=== PATIENT | female | born 1970 | race Caucasian/White ===

== ENCOUNTER 2020-06-14 14:34 | Outpatient (REF) | payer OTHER, SELFPAY ==
--- NOTE | ~2020-06-14 | XR_ITS ---
EXAMINATION: XR SHOULDER, RIGHT CLINICAL INFORMATION: Pain in right shoulder COMPARISON: None TECHNIQUE: AP external rotation, Grashey, scapular Y, and axillary views of the right shoulder. FINDINGS: No fracture or dislocation. The glenohumeral joint is well aligned. The joint space is maintained. The acromioclavicular joint is intact. There is a soft tissue calcification measuring 0.8 cm adjacent to the humeral greater tuberosity. The visualized lung is clear. The visualized ribs are intact. XR/XR shoulder RT min 2V IMPRESSION: Soft tissue calcification adjacent to the humeral greater tuberosity suggestive of calcific tendinosis of the rotator cuff.
== END 2020-06-14 14:35 | disposition home or self-care (01) ==
LOC: HO.XRAY 14:34
PROVIDERS: PCP Internal Medicine; Visit Provider Internal Medicine
DX: M25.511 Pain in right shoulder (principal)
CPT/HCPCS: 73030

== ENCOUNTER 2020-08-17 09:24 | Outpatient (REF) | payer OTHER, SELFPAY ==
--- NOTE | ~2020-08-17 | MM_ITS ---
EXAMINATION: MM SCREENING DIGITAL BREAST TOMOSYNTHESIS, BILATERAL CLINICAL INFORMATION: Screening. Asymptomatic. The lifetime risk of breast cancer based on the Tyrer-Cuzick Model is 9%. COMPARISON: Mammography: 06/16/2016, 01/15/2015 TECHNIQUE: Digital breast tomosynthesis is performed in both the craniocaudal and mediolateral oblique views along with computer-aided detection (CAD). Synthesized 2D images are generated from the tomosynthesis. Additional bilateral MLO views are provided. FINDINGS: The breasts are heterogeneously dense, which may obscure small masses (ACR BI-RADS breast composition Category c). There is fibronodular parenchymal pattern similar to prior exams. There is no developing density or interval significant mass or architectural abnormality. No abnormal calcifications. The skin contours are smooth. No significant changes from prior exam. MM/MM tomosynthesis screening BI IMPRESSION: No mammographic evidence of malignancy. ASSESSMENT: BI-RADS 2: Benign RECOMMENDATION: Routine annual mammography screening. This patient's information was entered into a reminder system with a target due date for their next mammogram.
[2020-08-17 09:57] LABS: MANUAL DIFF FLAG NO
[2020-08-17 10:03] LABS: Basophils Absolute Auto 0.1 X10*3/uL (0.0-0.2); Basophils Percent Auto 0.7 % (0-2); Eosinophils Absolute Auto 0.2 X10*3/uL (0.0-0.4); Eosinophils Percent Auto 2.7 % (0-4); Hemoglobin 12.6 g/dl (12.0-16.0); Imm Gran Abs Auto 0.05 X10*3/uL (0.00-0.03); Imm Gran Pct Auto 0.6 % (0.0-0.4); Lymphocytes Absolute Auto 2.2 X10*3/uL (1.2-4.9); Lymphocytes Percent Auto 26.5 % (20-40); Mean Corpuscular HGB Conc 32.3 g/dl (31.0-35.0); Mean Corpuscular Hemoglobin 28.3 pg (27.0-33.0); Mean Corpuscular Volume 87.6 fL (80-98); Mean Platelet Volume 11.2 fL (9.4-12.3); Monocytes Absolute Auto 0.8 X10*3/uL (0.1-1.2); Monocytes Percent Auto 9.7 % (2-11); Neutrophils Absolute Auto 4.9 X10*3/uL (2.0-8.3); Neutrophils Percent Auto 59.8 % (45-73); Platelet Count 199 X10*3/uL (160-400); Red Blood Count 4.45 X10*6/uL (4.20-5.50); Red Cell Distribution Width 19.8 % (11.0-16.0); White Blood Count 8.2 X10*3/uL (4.8-10.8)
[2020-08-17 10:26] LABS: Alanine Aminotransferase 58 U/L (0-31); Albumin Level 4.3 g/dL (3.5-5.0); Alkaline Phosphatase 97 U/L (39-117); Anion Gap 12 (12-20); Aspartate Amino Transferase 41 U/L (5-31); Bilirubin Total 0.6 mg/dL (0.0-1.0); Blood Urea Nitrogen 13 mg/dL (9-16); Calcium 9.3 mg/dL (8.4-10.2); Carbon Dioxide 24 mmol/L (22-29); Chloride 108 mmol/L (96-108); Cholesterol 183 mg/dL; Estimated Glomerular Filt Rate > 60; Glucose Fasting 99 mg/dL (60-99); HDL Cholesterol 49 mg/dL; Iron 79 mcg/dL (30-160); LDL Cholesterol Calculated 116 mg/dl; Percent Iron Saturation 26 % (15-50); Potassium 4.2 mmol/L (3.3-5.1); Sodium 140 mmol/L (135-145); Total Iron Binding Capacity 301 mcg/dL (228-428); Total Protein 6.8 g/dL (6.5-8.0); Triglycerides 90 mg/dL; Unsaturated Iron Binding 222 ug/dL
[2020-08-17 10:50] LABS: Free T4 (Free Thyroxine) 1.02 ng/dL (0.71-1.85); Thyroid Stimulating Hormone 2.29 uIU/mL (0.32-4.0)
== END 2020-08-17 09:25 | disposition home or self-care (01) ==
LOC: HO.MAMMO 09:24
PROVIDERS: PCP Internal Medicine; Visit Provider Internal Medicine
DX: Z12.31 Encounter for screening mammogram for malignant neoplasm of breast (principal); E66.01 Morbid (severe) obesity due to excess calories; E03.9 Hypothyroidism, unspecified; D50.9 Iron deficiency anemia, unspecified; D64.9 Anemia, unspecified; E78.5 Hyperlipidemia, unspecified
CPT/HCPCS: 36415; 77063; 77067; 80053; 80061; 83540; 84439; 84443; 85025

== ENCOUNTER 2021-02-09 08:55 | Outpatient (REF) | payer OTHER, SELFPAY ==
--- NOTE | ~2021-02-09 | XR_ITS ---
EXAMINATION: XR HAND, RIGHT CLINICAL INFORMATION: Pain COMPARISON: None TECHNIQUE: PA, lateral, and oblique views of the right hand. FINDINGS: Visualized portion of the distal radius and ulna demonstrate no fracture. Carpal rows are maintained. No carpal, metacarpal or phalangeal fracture. No focal soft tissue swelling. No radiopaque foreign body. XR/XR hand RT 2V IMPRESSION: Unremarkable radiographs of the right hand.
[2021-02-09 09:17] LABS: MANUAL DIFF FLAG NO
[2021-02-09 10:14] LABS: Basophils Absolute Auto 0.1 X10*3/uL (0.0-0.2); Basophils Percent Auto 1.3 % (0-2); Eosinophils Absolute Auto 0.2 X10*3/uL (0.0-0.4); Eosinophils Percent Auto 2.9 % (0-4); Hematocrit 37.4 % (37.0-47.0); Hemoglobin 12.2 g/dl (12.0-16.0); Imm Gran Abs Auto 0.03 X10*3/uL (0.00-0.03); Imm Gran Pct Auto 0.4 % (0.0-0.4); Lymphocytes Absolute Auto 2.7 X10*3/uL (1.2-4.9); Lymphocytes Percent Auto 34.3 % (20-40); Mean Corpuscular HGB Conc 32.6 g/dl (31.0-35.0); Mean Corpuscular Hemoglobin 28.7 pg (27.0-33.0); Mean Platelet Volume 11.3 fL (9.4-12.3); Monocytes Absolute Auto 0.7 X10*3/uL (0.1-1.2); Monocytes Percent Auto 8.3 % (2-11); Neutrophils Absolute Auto 4.2 x10*3/uL (2.0-8.3); Neutrophils Percent Auto 52.8 % (45-73); Platelet Count 275 X10*3/uL (160-400); Red Blood Count 4.25 X10*6/uL (4.20-5.50)
[2021-02-09 11:09] LABS: Thyroid Stimulating Hormone 3.88 uIU/mL (0.32-4.0)
== END 2021-02-09 08:56 | disposition home or self-care (01) ==
LOC: HO.LAB 08:55
PROVIDERS: PCP Internal Medicine; Visit Provider Internal Medicine
DX: E03.9 Hypothyroidism, unspecified (principal); D64.9 Anemia, unspecified; M79.644 Pain in right finger(s)
CPT/HCPCS: 36415; 73120; 84443; 85025

== ENCOUNTER → 2021-04-06 09:40 | Outpatient (BNVA) | payer OTHER, SELFPAY | PROVIDERS: PCP Internal Medicine; Visit Provider Orthopaedic Surgery | DX: M65.311 Trigger thumb, right thumb (principal) | CPT/HCPCS: 99202 ==

== ENCOUNTER 2021-04-19 07:44 | Outpatient (REF) | payer OTHER, SELFPAY ==
[2021-04-19 08:09] LABS: MANUAL DIFF FLAG NO
[2021-04-19 08:34] LABS: Basophils Absolute Auto 0.1 X10*3/uL (0.0-0.2); Basophils Percent Auto 1.2 % (0-2); Eosinophils Absolute Auto 0.2 X10*3/uL (0.0-0.4); Eosinophils Percent Auto 2.5 % (0-4); Hematocrit 36.4 % (37.0-47.0); Hemoglobin 11.5 g/dl (12.0-16.0); Imm Gran Abs Auto 0.03 X10*3/uL (0.00-0.03); Imm Gran Pct Auto 0.4 % (0.0-0.4); Lymphocytes Absolute Auto 2.5 X10*3/uL (1.2-4.9); Lymphocytes Percent Auto 32.4 % (20-40); Mean Corpuscular HGB Conc 31.6 g/dl (31.0-35.0); Mean Corpuscular Hemoglobin 27.1 pg (27.0-33.0); Mean Corpuscular Volume 85.8 fL (80.0-98.0); Mean Platelet Volume 11.2 fL (9.4-12.3); Monocytes Absolute Auto 0.7 X10*3/uL (0.1-1.2); Monocytes Percent Auto 8.9 % (2-11); Neutrophils Absolute Auto 4.2 x10*3/uL (2.0-8.3); Neutrophils Percent Auto 54.6 % (45-73); Platelet Count 284 X10*3/uL (160-400); Red Blood Count 4.24 X10*6/uL (4.20-5.50); Red Cell Distribution Width 13.4 % (11.0-16.0); White Blood Count 7.8 X10*3/uL (4.8-10.8)
[2021-04-19 08:55] LABS: Alanine Aminotransferase 16 U/L (0-31); Albumin Level 4.2 g/dL (3.5-5.0); Alkaline Phosphatase 78 U/L (39-117); Anion Gap 12 (12-20); Aspartate Amino Transferase 17 U/L (5-31); Bilirubin Total 0.4 mg/dL (0.0-1.0); Blood Urea Nitrogen 18 mg/dL (9-16); Calcium 9.4 mg/dL (8.4-10.2); Carbon Dioxide 27 mmol/L (22-29); Chloride 104 mmol/L (96-108); Cholesterol 185 mg/dL; Estimated Glomerular Filt Rate > 60; Glucose Fasting 100 mg/dL (60-99); HDL Cholesterol 48 mg/dL; Iron 41 mcg/dL (30-160); LDL Cholesterol Calculated 120 mg/dl; Percent Iron Saturation 11 % (15-50); Potassium 4.4 mmol/L (3.3-5.1); Sodium 139 mmol/L (135-145); Total Iron Binding Capacity 380 mcg/dL (228-428); Total Protein 6.8 g/dL (6.5-8.0); Triglycerides 88 mg/dL; Unsaturated Iron Binding 339 ug/dL
[2021-04-19 09:17] LABS: Thyroid Stimulating Hormone 2.52 uIU/mL (0.32-4.0)
== END 2021-04-19 07:45 | disposition home or self-care (01) ==
LOC: HO.LAB 07:44
PROVIDERS: PCP Internal Medicine; Visit Provider Internal Medicine
DX: E03.9 Hypothyroidism, unspecified (principal); E78.5 Hyperlipidemia, unspecified; R03.0 Elevated blood-pressure reading, without diagnosis of hypertension; D50.9 Iron deficiency anemia, unspecified
CPT/HCPCS: 36415; 80053; 80061; 83540; 84443; 85025

== ENCOUNTER 2021-04-25 11:27 | Day surgery (SDC) | payer OTHER, SELFPAY ==
[2021-04-25 12:20] VITALS: BMI 38.2
--- NOTE | 2021-04-25 14:37 | MHC.SHP ---
Pre-Procedural Eval Section A Date of Service: 04/25/21 The patient is an INPATIENT: No Changes since office visit: No Cold of Flu in the past 2 weeks, No New Medical Problems, No Changes in Medication and No Patient answered all questions The History & Physical has been completed within 30 days and I have reviewed it.: Yes Section B Chief Complaint: thumb trigger release Allergies: Allergies Allergy/AdvReac Type Severity Reaction Status Date / Time amoxicillin Allergy Intermediate hives Verified 04/06/21 09:54 Plan I have reviewed the history and physical and performed a pertinent physical examination on my patient. No changes have occurred unless specified.
--- NOTE | 2021-04-25 14:38 | P.OP_ITS ---
Operative Note Operative Note Date of Service: 04/25/21 Narrative: Operative Note Preop diagnosis: 1. right thumb Trigger finger Postop diagnosis: 1. right thumb Trigger finger Procedure: 1. right thumb A1 juan release Surgeon: Annamarie Ramirez MD Anesthesia: local block using 1% lidocaine with epinephrine Findings: No locking or catching after A1 juan release EBL: Less than 5 mL Tourniquet time: None Specimens: None Complications: None Disposition: Brought to recovery room in stable condition Plan: Follow-up for 10-14 days for wound check and suture removal Indications: The patient is 51 years old, with a right thumb trigger finger that has been unresponsive to nonoperative management. The risks and benefits of operative treatment including but not limited to risk of damage to blood vessels, nerves, tendons, infection, persistent pain, persistent symptoms, recurrence or possible need for additional surgery were discussed with the patient and the patient wishes to proceed with surgery. Procedure: Once consent was obtained a local block was performed in the preop area using a combination of 1% lidocaine with epinephrine. The patient was then brought back to the operating suite and placed on the operative table in supine position. A tourniquet was applied to the proximal aspect of the right upper extremity and the limb was prepped and draped in a standard surgical fashion. Once assured that we had a good block, a 1.5 cm oblique incision was made centered over the A1 juan of the right thumb . The incision was made through the skin to the subcutaneous tissues using a #15 blade. Careful dissection was made down to the level of the A1 juan using tenotomy scissors, with care being taken to protect the nearby neurovascular structures. A longitudinal incision was made in the A1 juan 1st using a #15 blade, then using tenotomy scissors under direct visualization. The A1 juan was noted to be thickened. Following our A1 juan release, we no longer saw any locking or catching of the digit wit h flexion and extension. Once satisfied with our A1 juan release the wound was copiously irrigated with normal saline and hemostasis was obtained with a brief period of local pressure. The skin edges were reapproximated with some 5.0 nylon suture material and a sterile dressing was applied. The patient appears to have tolerated the procedure well and with no complications. All digits were well vascularized at the conclusion of the case.
[2021-04-25 14:59] VITALS: BP 132/70; PULSE 86; RESP 16; TEMP 36.1; O2SAT 98
== END 2021-04-25 15:08 | disposition home or self-care (01) ==
PROVIDERS: PCP Internal Medicine; Visit Provider Orthopaedic Surgery
PROC: (CPT 26055; principal; 2021-04-25 13:10)
DX: M65.311 Trigger thumb, right thumb (principal); M79.644 Pain in right finger(s); R03.0 Elevated blood-pressure reading, without diagnosis of hypertension; F31.9 Bipolar disorder, unspecified; F41.1 Generalized anxiety disorder; Z88.1 Allergy status to other antibiotic agents; E03.9 Hypothyroidism, unspecified; D50.9 Iron deficiency anemia, unspecified; E66.01 Morbid (severe) obesity due to excess calories; Z68.38 Body mass index [BMI] 38.0-38.9, adult; Z79.899 Other long term (current) drug therapy; Z87.891 Personal history of nicotine dependence
CPT/HCPCS: 26055

== ENCOUNTER → 2021-05-10 08:32 | Outpatient (BNVA) | payer OTHER, SELFPAY | PROVIDERS: PCP Internal Medicine; Visit Provider Orthopaedic Surgery | DX: Z47.89 Encounter for other orthopedic aftercare (principal); Z87.39 Personal history of other diseases of the musculoskeletal system and connective tissue | CPT/HCPCS: 99212 ==

== ENCOUNTER 2021-07-29 15:51 | Emergency (ER) | payer OTHER, SELFPAY ==
[2021-07-29 16:00] VITALS: BP 180/100; PULSE 100; O2SAT 95
[2021-07-29 16:12] VITALS: BP 165/72; PULSE 85; RESP 16; TEMP 36.3; O2SAT 97; BMI 37.9
[2021-07-29 20:20] VITALS: BP 145/77; PULSE 70; RESP 18; O2SAT 98
--- NOTE | 2021-07-29 20:23 | ED.GENADULT ---
HPI - General Adult General Chief complaint: General Medical Stated complaint: hypertension/headache Time Seen by Provider: 07/29/21 20:23 Source: patient Mode of arrival: ambulatory Limitations: no limitations History of Present Illness HPI narrative: Patient history of hypertension, anxiety supposed to be on lisinopril which is not taking for last 4 days . Patient does have anxiety and stress lately started having headache at the top of the head around 14:00 came home no nausea no vomiting took her blood pressure was elevated to 194/113 to her lisinopril 10 mg at 14:50 on arrival patient's blood pressure was 165/72. Patient describes her headache dull headache gradual onset localized to top of the head area. Recheck blood pressure was 145/77 Related Data Home Medications Medication Instructions Recorded Confirmed diphenhydramine HCl 25 mg capsule 25 mg PO TID PRN 06/14/20 06/15/21 (Benadryl) Previous Rx's Medication Instructions Recorded levothyroxine 25 mcg tablet 25 mcg PO DAILY 90 Days #90 tab 03/18/21 lisinopril 10 mg tablet 10 mg PO DAILY 90 Days #90 tab 04/15/21 hydrocortisone 1 % topical cream 1 appl TOPICAL TID PRN 30 Days 06/15/21 (Anti-Itch (hydrocortisone)) #28.4 g ferrous sulfate 325 mg (65 mg 325 mg PO DAILY 90 Days #90 tab 07/12/21 iron) tablet lorazepam 0.5 mg tablet (Ativan) 0.5 mg PO BEDTIME PRN #14 tab 07/29/21 Allergies Allergy/AdvReac Type Severity Reaction Status Date / Time amoxicillin Allergy Intermediate hives Verified 07/29/21 16:16 Review of Systems Review of Systems: Yes all other systems are reviewed and are negative PMFSH Past Medical History Medical History Bipolar 1 disorder Eczema Elevated blood pressure reading in office without diagnosis of hypertension Essential hypertension EDEN (generalized anxiety disorder) History of trigger finger Hypothyroidism Iron deficiency anemia Morbid obesity Pain of right thumb Physical exam Right shoulder pain Surgical History History of laparoscopic cholecystectomy History of tubal ligation Trigger finger of right thumb Family History Family History Father No problems noted. Mother Diabetes Hypertension Maternal Grandmother Diabetes Hypertension Stroke Maternal Aunt Diabetes Hypertension CVD (cardiovascular disease) Social History Social History Housing: Apartment Alcohol intake: never Patient Tobacco Use Status: Former Tobacco user Tobacco use type: Cigarette e-Cigarette/Vaping Use: Never Used Second Hand Smoke Exposure: No Advance Directives: No Advance Directives Information Provided: Yes service: No Current occupational status: unemployed Current occupation: rt hand Cognitive needs: No Hearing needs: No Vision needs: Yes Physical Exam ED Vital Signs: Vital Signs - 24 hr 07/29/21 16:12 07/29/21 20:20 Temperature 97.3 F Pulse Rate 85 70 Respiratory Rate 16 18 Blood Pressure 165/72 H 145/77 H Pulse Oximetry 97 98 BMI result Body Mass Index 37.9 Appearance: Alert. Oriented X3. No acute distress. Anxious Eyes: PERRLA, ENT: Pharynx normal. Oral Mucosa moist Neck: Normal inspection. Neck supple. CVS: Normal heart rate and rhythm. Pulses normal. Respiratory: No respiratory distress. Equal air entry bilateral, no wheezing/rales/rhonchi Abdomen: Soft and nontender. Bowel sounds are present, no mass palpable, no CVA tenderness Skin: Skin warm and dry. Normal skin color. Normal skin turgor. Extremities: No lower extremity edema. No calf tenderness Neuro: Oriented X 3. No motor deficit. No sensory deficit.No cerebellar signs , cranial nerves II-XII intact Medical Decision Making MDM Narrative Medical decision making narrative: Patient history of hypertension anxiety not taking her anxiety medication blood pressure was elevated at home on arrival patient's blood pressure improved. Has only mild headache at this time no neuro deficits will give Tylenol and Ativan to relax advised to continue her lisinopril and follow with PCP Discharge Plan Discharge Clinical Impression: Essential hypertension, EDEN (generalized anxiety disorder) Patient Disposition: Home, Self-Care Instructions: Chronic Hypertension (ED), Anxiety (ED) Additional Instructions: Take blood pressure medication as prescribed by your PCP Decrease salt intake Anxiety medication as prescribed Check blood pressure 2 times daily it should be less than 140/90 Prescriptions: New lorazepam [Ativan] 0.5 mg tablet 0.5 mg PO BEDTIME PRN (Reason: anxiety) Qty: 14 0RF No Action levothyroxine 25 mcg tablet 25 mcg PO DAILY 90 Days Qty: 90 1RF lisinopril 10 mg tablet 10 mg PO DAILY 90 Days Qty: 90 1RF ferrous sulfate 325 mg (65 mg iron) tablet 325 mg PO DAILY 90 Days Qty: 90 1RF hydrocortisone [Anti-Itch (HC)] 1 % cream 1 appl topical TID PRN (Reason: skin irritation) 30 Days Qty: 28.4 1RF diphenhydramine HCl [Benadryl] 25 mg capsule 25 mg PO TID PRN0RF
[2021-07-29] MEDS: Acetaminophen 325 MG TABLET 650 MG PO (21:12)
[2021-07-29 21:13] VITALS: BP 166/73; PULSE 75; RESP 22
== END 2021-07-29 21:19 | disposition home or self-care (01) ==
PROVIDERS: Emergency Provider Internal Medicine; PCP Internal Medicine
DX: F41.1 Generalized anxiety disorder (principal); I10 Essential (primary) hypertension
CPT/HCPCS: 99283

== ENCOUNTER 2021-12-12 08:31 | Outpatient (REF) | payer OTHER, SELFPAY ==
[2021-12-12 08:42] LABS: MANUAL DIFF FLAG NO
[2021-12-12 09:14] LABS: Basophils Absolute Auto 0.1 X10*3/uL (0.0-0.2); Basophils Percent Auto 0.9 % (0-2); Eosinophils Absolute Auto 0.2 X10*3/uL (0.0-0.4); Eosinophils Percent Auto 2.8 % (0-4); Hematocrit 36.1 % (37.0-47.0); Hemoglobin 11.2 g/dl (12.0-16.0); Imm Gran Abs Auto 0.02 X10*3/uL (0.00-0.03); Imm Gran Pct Auto 0.3 % (0.0-0.4); Lymphocytes Absolute Auto 2.7 X10*3/uL (1.2-4.9); Lymphocytes Percent Auto 36.2 % (20-40); Mean Corpuscular Volume 83.8 fL (80.0-98.0); Mean Platelet Volume 11.3 fL (9.4-12.3); Monocytes Absolute Auto 0.7 X10*3/uL (0.1-1.2); Monocytes Percent Auto 9.4 % (2-11); Neutrophils Absolute Auto 3.8 x10*3/uL (2.0-8.3); Neutrophils Percent Auto 50.4 % (45-73); Platelet Count 278 X10*3/uL (160-400); Red Blood Count 4.31 X10*6/uL (4.20-5.50); Red Cell Distribution Width 13.6 % (11.0-16.0); White Blood Count 7.5 X10*3/uL (4.8-10.8)
[2021-12-12 09:39] LABS: Iron 43 mcg/dL (30-160); Percent Iron Saturation 10 % (15-50); Total Iron Binding Capacity 436 mcg/dL (228-428); Unsaturated Iron Binding 393 ug/dL
[2021-12-12 10:03] LABS: Thyroid Stimulating Hormone 4.27 uIU/mL (0.32-4.0)
== END 2021-12-12 08:32 | disposition home or self-care (01) ==
LOC: HO.LAB 08:31
PROVIDERS: PCP Internal Medicine; Visit Provider Internal Medicine
DX: E03.9 Hypothyroidism, unspecified (principal); D64.9 Anemia, unspecified
CPT/HCPCS: 36415; 83540; 84443; 85025

== ENCOUNTER 2022-07-04 07:59 | Outpatient (REF) | payer OTHER, SELFPAY ==
[2022-07-04 09:13] LABS: Thyroid Stimulating Hormone 3.26 uIU/mL (0.32-4.0)
== END 2022-07-04 08:00 | disposition home or self-care (01) ==
LOC: HO.LAB 07:59
PROVIDERS: PCP Internal Medicine; Visit Provider Internal Medicine
DX: E03.9 Hypothyroidism, unspecified (principal)
CPT/HCPCS: 36415; 84443

== ENCOUNTER 2022-11-01 12:01 | Outpatient (REF) | payer OTHER, SELFPAY ==
--- NOTE | ~2022-11-01 | MM_ITS ---
EXAMINATION: MM SCREENING DIGITAL BREAST TOMOSYNTHESIS, BILATERAL CLINICAL INFORMATION: Screening. Asymptomatic. COMPARISON: Mammography: 08/17/2020, 06/16/2016, and 01/15/2015. TECHNIQUE: Digital breast tomosynthesis is performed in both the craniocaudal and mediolateral oblique views along with computer-aided detection (CAD). Synthesized 2D images are generated from the tomosynthesis. In addition, 3-D full-field digital right MLO nipple in profile views were obtained. FINDINGS: The breasts are heterogeneously dense, which may obscure small masses (ACR BI-RADS breast composition Category c). Parenchyma again is noted to have a fibronodular diffuse pattern. It is unchanged from prior examinations in both breasts. There are no suspicious masses, suspicious grouped calcifications, or areas of architectural distortion. MM/MM tomosynthesis screening BI IMPRESSION: No mammographic evidence of malignancy. ASSESSMENT: BI-RADS BI-RADS 1 - Negative RECOMMENDATION: Routine annual mammography screening. 1 year F/U This examination should not preclude the clinical evaluation of a suspicious palpable abnormality. This patient's information was entered into a reminder system with a target due date for their next mammogram.
== END 2022-11-01 12:02 | disposition home or self-care (01) ==
LOC: HO.MAMMO 12:01
PROVIDERS: PCP Internal Medicine; Visit Provider Internal Medicine
DX: Z12.31 Encounter for screening mammogram for malignant neoplasm of breast (principal)
CPT/HCPCS: 77063; 77067

== ENCOUNTER → 2022-11-01 12:15 | Outpatient (BNV) | payer OTHER, SELFPAY | PROVIDERS: PCP Internal Medicine; Visit Provider Radiology Diagnostic Radiology | DX: Z12.31 Encounter for screening mammogram for malignant neoplasm of breast (principal) | CPT/HCPCS: 77063; 77067 ==

== ENCOUNTER 2023-07-09 08:13 | Outpatient (AMB) | payer OTHER, SELFPAY ==
[2023-07-09 08:23] VITALS: BP 150/82; BMI 40.9
--- NOTE | 2023-07-09 08:23 | MHC.PC.OV ---
Vital Signs 07/09/23 08:23 07/09/23 09:02 Height 5 ft 5 in Weight 246 lb BMI 40.9 BP 150/82 H 150/80 H Blood Pressure Location Lt brachial Lt brachial Position Sitting Sitting Intake Visit Reasons: physical exam Intake Note: Patient here for a physical exam [employer] Defense Specialist Required: No Accompanied by: Self / Same As Patient Allergies amoxicillin Allergy (Intermediate, Verified 07/09/23 08:37) hives Medication List - Last Reconciled 07/09/23 by Nancy Rondon MD amlodipine 5 mg PO DAILY 90 days hydrocortisone 1% (Anti-Itch (hydrocortisone)) 1 appl topical TID PRN 30 days levothyroxine 50 mcg PO DAILY 90 days Tobacco use date assessed: 07/09/23 Dental Screening Dental Screen Date: 07/09/23 Did you have a dental visit in the last 12 months?: Yes Did you have a dental problem in the last 6 months where you did not have access to dental care?: No Was dental information given to patient?: Patient has dentist HPI HPI Comments History of Present Illness Details This is a 53-year-old female with morbid obesity and bipolar disorder that comes for her physical exam. She is morbidly obese with a BMI of 40.9 and has tried diet and exercise with no success. Will be referred to weight management. Has bipolar disorder with more anxiety and I will start her on Lamictal. Blood pressure elevated today and will be recheck by nurse in 3 weeks. I will increase amlodipine from 5 mg to 10 mg. Patient is aware that amlodipine cause leg swelling but she has not experienced that at the moment. Last mammogram was October 2022. Last Pap smear was 2015 and will be referred to OBGYN. Was not able to do the Cologuard and will prefer colonoscopy. Was referred to Gastroenterology for this matter. [facility] Medical History (Updated 07/09/23 @ 08:56 by Nancy Rondon MD) Eczema Physical exam History of trigger finger Essential hypertension EDEN (generalized anxiety disorder) Elevated blood pressure reading in office without diagnosis of hypertension Pain of right thumb Iron deficiency anemia Hypothyroidism Right shoulder pain Morbid obesity Bipolar 1 disorder Surgical History Trigger finger of right thumb History of tubal ligation History of laparoscopic cholecystectomy Family History Father No problems noted. Mother Diabetes Hypertension Maternal Grandmother Diabetes Hypertension Stroke Maternal Aunt Diabetes Hypertension CVD (cardiovascular disease) Social History Housing: Apartment Alcohol intake: never Patient Tobacco Use Status: Former Tobacco user Tobacco use type: Cigarette e-Cigarette/Vaping Use: Never Used Second Hand Smoke Exposure: No service: No Current occupational status: employed Current occupation: rt hand Current occupational exposures/hazards: No Cognitive needs: No Hearing needs: No Vision needs: Yes Questionnaire PHQ-9 Over the last 2 weeks, how often have you been bothered by any of the following problems? 1. Little interest or pleasure in doing things: not at all 2. Feeling down, depressed, or hopeless: not at all 3. Trouble falling or staying asleep, or sleeping too much: not at all 4. Feeling tired or having little energy: not at all 5. Poor appetite or overeating: not at all 6. Feeling bad about yourself - or that you are a failure or have let yourself or your family down: not at all 7. Trouble concentrating on things, such as reading the newspaper or watching television: not at all 8. Moving or speaking so slowly that other people could have noticed. Or the opposite - being so fidgety or restless that you have been moving around a lot more than usual: not at all 9. Thoughts that you would be better off or of hurting yourself in some way: not at all Total score: 0 Depression Screening Interpretation: Negative Depression Screening Done: Yes 56104 - PHQ-9 Billing: Yes Source: Developed by Drs. Colt Woo, Nina Acuña, Rico Jarquin and colleagues, with an educational codi from [employer]. Thrive Questionnaire Date Thrive assessed: 07/09/23 I am a: Patient What is your living situation today?: I have a steady place to live Within the past 12 months, did the food you bought not last and you didn't have the money to get more?: Never true Within the past 12 months, did you worry whether your food would run out before you got money to buy more?: Never true Do you have trouble paying for medicines?: No Do you have trouble getting transportation to medical appointments?: No Do you have trouble paying your heating and electricity bill?: No Do you have trouble taking care of your child, family member or friend?: No Do you have trouble with day-to-day activities such as bathing, preparing meals, shopping, managing finances, etc.?: No Are you currently unemployed and looking for a job?: No Are you interested in more education?: No Please select the resources that you would like help with: None Currently or been in a relationship where the following occur: no concerns reported THRIVE Score: 0 AUDIT C Alcohol Use Questionnaire (AUDIT-C) 1. How often do you have a drink containing alcohol?: Never Total Score: 0 Score Reviewed/Action Taken: No EDEN-7 AMB Questionnaire EDEN-7 Date EDEN - 7 assessed: 07/09/23 Feeling nervous, anxious, or on edge: 3 = Nearly every day Not being able to stop or control worryin = Several days Worrying too much about different things: 3 = Nearly every day Trouble relaxin = Nearly every day Being so restless that it is hard to sit still: 1 = Several days Becoming easily annoyed or irritable: 1 = Several days Feeling afraid as if something awful might happen: 3 = Nearly every day Total EDEN-7 score (0-4 normal; 5-9 mild; 10-14 moderate; 15-21 severe): 15 Source: Developed by Drs. Colt Woo, Nina Acuña, Rico Jarquin and colleagues, with an educational codi from [employer]. EDEN-7 Assessment Billing EDEN-7 Assessment Tool: EDEN-7 Assessment 18901 Review of Systems Const All systems reviewed & are unremarkable except as noted in HPI and below Eyes Reports no additional complaints, Denies change in vision and Denies other visual disturbances Card Denies chest pain at rest, Denies chest pain with activity, Denies edema, Denies irregular heart rhythm, Denies claudication, Denies dyspnea, Denies dyspnea on exertion, Denies orthopnea, Denies paroxysmal nocturnal dyspnea and Denies slow heart rate Resp Denies cough, Denies dyspnea and Denies dyspnea on exertion GI Denies abdominal pain, Denies change in bowel habits, Denies excessive flatus, Denies nausea and Denies vomiting Denies urinary incontinence, Denies urinary hesitancy and Denies urinary urgency Physical exam (Primary Care) Vital Signs: Last Vital Signs BP 150/82 H 07/09/23 08:23 BMI result Body Mass Index 40.9 BMI Assessment/Plan discussion: High BMI High, discussed plan: lifestyle, weight reduction, dietary and physical activity Tobacco/Smoking Status: Tobacco use Status Tobacco use date assessed 07/09/23 07/09/23 08:29 Patient Tobacco Use Status Former Tobacco user 07/09/23 08:29 Tobacco use type Cigarette 07/09/23 08:29 e-Cigarette/Vaping Use Never Used 07/09/23 08:29 PHQ-9: PHQ-9 Score PHQ-9: Total score 0 07/09/23 08:29 Depression Screening Interpretation: Negative Thrive Assessment: Date of Thrive Assessment Date Thrive assessed 07/09/23 07/09/23 08:29 Currently or been in a relationship where the following occur: no concerns reported Const Orientation/consciousness: patient oriented x3 HENNE Head: Yes normal to inspection, Yes normocephalic and Yes atraumatic Ears: external ears normal Eyes General: appearance normal, both eyes and all related structures Eyelids: Yes eyelids normal Conjunctivae: conjunctivae normal Neck Neck: Yes normal visual inspection and Yes supple Resp Effort & Inspection: normal respiratory effort Auscultation: clear to auscultation bilaterally Cardio Jugular venous distension: no JVD Rate: regular rate Rhythm: regular rhythm Heart sounds: S1 normal heart sound present and S2 normal heart sound present GI Inspection: Yes normal to inspection Palpation (GI): Soft to palpation and nontender Auscultation: normal bowel sounds Skin General skin exam: no rashes or lesions noted Neuro General: patient oriented x3 and no focal motor deficits Extrem General: Yes full ROM Psych Appearance: grossly normal Assessment and Plan Assessment & Plan (1) Physical exam: Code(s): Z00.00 - Encounter for general adult medical examination without abnormal findings Plan: Repeat in a year. (2) Morbid obesity: Code(s): E66.01 - Morbid (severe) obesity due to excess calories Plan: Referred to weight management. BMI goal is less than 30. (3) Bipolar 1 disorder: Code(s): F31.9 - Bipolar disorder, unspecified Plan: Start Lamictal. Orders: Orders Comprehensive [place]. Panel Fast Today Z00.00 - Encounter for general adult medical examination without abnormal findings Vitamin B12 and Folate Today E53.8 - Deficiency of other specified B group vitamins Complete Blood Count Auto Diff Today D64.9 - Anemia, unspecified Lipid Panel Today Z00.00 - Encounter for general adult medical examination without abnormal findings Vitamin D 25-OH Total Today E55.9 - Vitamin D deficiency, unspecified IRON PROFILE Today D64.9 - Anemia, unspecified Thyroid Stimulating Hormone Today E03.9 - Hypothyroidism, unspecified Referrals Gastroenterology Referral Z12.11 - Encounter for screening for malignant neoplasm of colon Medical Weight Management Referral E66.01 - Morbid (severe) obesity due to excess calories [employer] Referral Z12.4 - Encounter for screening for malignant neoplasm of cervix Medications: New amlodipine 10 mg PO DAILY 90 days 90 tabs 1RF I10 - Essential (primary) hypertension lamotrigine 25 mg PO DAILY 90 days 90 tabs 1RF F31.9 - Bipolar disorder, unspecified Discontinued amlodipine Discontinued Reason: No Longer Medically Relevant 5 mg PO DAILY 90 days 90 tabs 1RF I10 - Essential (primary) hypertension Coding Level of Care Code Est Pt Prev Care 40-64y(55424) Diagnoses Physical exam Z00.00 Morbid obesity E66.01 Bipolar 1 disorder F31.9 Additional Codes EDEN-7 Assessment Billing - EDEN-7 Assessment Tool: EDEN-7 Assessment 22927 ([id number]) Time Spent (min) 33
[2023-07-09 09:02] VITALS: BP 150/80
== END 2023-07-09 09:02 | disposition home or self-care (01) ==
PROVIDERS: Visit Provider Internal Medicine
DX: Z00.00 Encounter for general adult medical examination without abnormal findings (principal); E66.01 Morbid (severe) obesity due to excess calories; F31.9 Bipolar disorder, unspecified; Z68.41 Body mass index [BMI] 40.0-44.9, adult
CPT/HCPCS: 99396

== ENCOUNTER 2023-07-10 08:13 | Outpatient (REF) | payer OTHER, SELFPAY ==
[2023-07-10 08:42] LABS: MANUAL DIFF FLAG NO
[2023-07-10 09:05] LABS: Basophils Absolute Auto 0.1 X10*3/uL (0.0-0.2); Basophils Percent Auto 1.1 % (0-2); Eosinophils Absolute Auto 0.3 X10*3/uL (0.0-0.4); Eosinophils Percent Auto 3.5 % (0-4); Hematocrit 33.3 % (37.0-47.0); Hemoglobin 10.3 g/dl (12.0-16.0); Imm Gran Abs Auto 0.03 X10*3/uL (0.00-0.03); Imm Gran Pct Auto 0.4 % (0.0-0.4); Lymphocytes Absolute Auto 2.5 X10*3/uL (1.2-4.9); Lymphocytes Percent Auto 35.8 % (20-40); Mean Corpuscular HGB Conc 30.9 g/dl (31.0-35.0); Mean Corpuscular Hemoglobin 25.1 pg (27.0-33.0); Mean Corpuscular Volume 81.2 fL (80.0-98.0); Mean Platelet Volume 10.3 fL (9.4-12.3); Monocytes Absolute Auto 0.7 X10*3/uL (0.1-1.2); Monocytes Percent Auto 9.6 % (2-11); Neutrophils Absolute Auto 3.5 x10*3/uL (2.0-8.3); Neutrophils Percent Auto 49.6 % (45-73); Platelet Count 293 X10*3/uL (160-400); Red Cell Distribution Width 15.6 % (11.0-16.0); White Blood Count 7.1 X10*3/uL (4.8-10.8)
[2023-07-10 10:02] LABS: Alanine Aminotransferase 19 U/L (0-31); Alkaline Phosphatase 77 U/L (39-117); Anion Gap 14 (12-20); Aspartate Amino Transferase 19 U/L (5-31); Bilirubin Total 0.3 mg/dL (0.0-1.0); Blood Urea Nitrogen 14 mg/dL (9-16); Calcium 8.9 mg/dL (8.4-10.2); Carbon Dioxide 24 mmol/L (22-29); Chloride 105 mmol/L (96-108); Cholesterol 176 mg/dL (<200); Estimated Glomerular Filt Rate > 60; Glucose Fasting 97 mg/dL (60-99); HDL Cholesterol 52 mg/dL (>40); Iron 28 mcg/dL (30-160); LDL Cholesterol Calculated 107 mg/dL (<100); Percent Iron Saturation 8 % (15-50); Potassium 3.8 mmol/L (3.3-5.1); Sodium 139 mmol/L (135-145); Total Iron Binding Capacity 341 mcg/dL (228-428); Total Protein 7.1 g/dL (6.5-8.0); Triglycerides 89 mg/dL (<150); Unsaturated Iron Binding 313 ug/dL
[2023-07-10 10:20] LABS: Thyroid Stimulating Hormone 2.88 uIU/mL (0.32-4.0); Vitamin D 25-OH Total 20.2 ng/mL (>30)
[2023-07-10 10:26] LABS: Folate 12.7 ng/mL (> or = 4.0); Vitamin B12 425 pg/mL (200-900)
== END 2023-07-10 08:14 | disposition home or self-care (01) ==
LOC: HO.LAB 08:13
PROVIDERS: PCP Internal Medicine; Visit Provider Internal Medicine
DX: Z00.00 Encounter for general adult medical examination without abnormal findings (principal); D64.9 Anemia, unspecified; E03.9 Hypothyroidism, unspecified; E53.8 Deficiency of other specified B group vitamins; E55.9 Vitamin D deficiency, unspecified
CPT/HCPCS: 36415; 80053; 80061; 82306; 82607; 82746; 83540; 84443; 85025

== ENCOUNTER 2024-01-15 09:45 | Outpatient (AMB) | payer OTHER, MEDICAID, SELFPAY ==
--- NOTE | 2024-01-15 09:49 | MHC.PC.OV ---
Vital Signs 01/15/24 09:50 01/15/24 10:05 Height 5 ft 5 in Weight 244 lb BMI 40.6 BP 148/82 H 138/80 Blood Pressure Location Lt brachial Lt brachial Position Sitting Sitting Intake Visit Reasons: bp, anxiety and weight Intake Note: Patient here for a follow up Bp, Anxiety, Weight Advanced Seal Delivery System Required: No Accompanied by: Self / Same As Patient Allergies amoxicillin Allergy (Intermediate, Verified 01/15/24 09:56) hives Medication List - Last Reconciled 01/15/24 by Nancy Rondon MD amlodipine 10 mg PO DAILY 90 days cholecalciferol (vitamin D3) 25 mcg PO DAILY 90 days ferrous sulfate 325 mg PO DAILY 90 days hydrocortisone 1% (Anti-Itch (hydrocortisone)) 1 appl topical TID PRN 30 days levothyroxine 50 mcg PO DAILY 90 days Tobacco use date assessed: 07/09/23 Dental Screening Dental Screen Date: 07/09/23 HPI HPI Comments History of Present Illness Details This is a 53-year-old female with hypertension, hypothyroidism, bipolar disorder, morbid obesity and iron-deficiency anemia due to chronic blood loss that comes today for follow-up on her conditions. Blood pressure is normal to elevated. She does take it at home and usually is 130/80. TSH will be order. She tried lamotrigine as mood stabilizer which did not work for her. Has bipolar disorder on declines medication at the moment. She is morbidly obese with a BMI of 40.6 and will be referred to weight management for possible weight loss surgery. Has anemia due to menses and is on ferrous sulfate. Hemoglobin will be order. No chest pain or shortness on breath. [facility] Medical History (Updated 01/15/24 @ 11:38 by Nancy Rondon MD) Eczema Physical exam History of trigger finger Essential hypertension EDEN (generalized anxiety disorder) Elevated blood pressure reading in office without diagnosis of hypertension Pain of right thumb Iron deficiency anemia Hypothyroidism Right shoulder pain Morbid obesity Bipolar 1 disorder Surgical History Trigger finger of right thumb History of tubal ligation History of laparoscopic cholecystectomy Family History Father No problems noted. Mother Diabetes Hypertension Maternal Grandmother Diabetes Hypertension Stroke Maternal Aunt Diabetes Hypertension CVD (cardiovascular disease) Social History Housing: Apartment Alcohol intake: never Patient Tobacco Use Status: Former Tobacco user Tobacco use type: Cigarette e-Cigarette/Vaping Use: Never Used Second Hand Smoke Exposure: No service: No Current occupational status: employed Current occupation: rt hand Current occupational exposures/hazards: No Cognitive needs: No Hearing needs: No Vision needs: Yes Questionnaire Thrive Questionnaire Date Thrive assessed: 07/09/23 EDEN-7 AMB Questionnaire EDEN-7 Date EDEN - 7 assessed: 07/09/23 Source: Developed by Drs. Colt Woo, Nina Acuña, Rico Jarquin and colleagues, with an educational codi from [employer]. Review of Systems Const All systems reviewed & are unremarkable except as noted in HPI and below Card Denies chest pain at rest, Denies chest pain with activity, Denies edema, Denies irregular heart rhythm, Denies claudication, Denies dyspnea, Denies dyspnea on exertion, Denies orthopnea, Denies paroxysmal nocturnal dyspnea and Denies slow heart rate Resp Denies cough, Denies dyspnea and Denies dyspnea on exertion GI Denies abdominal pain, Denies change in bowel habits, Denies excessive flatus, Denies nausea and Denies vomiting Denies urinary incontinence, Denies urinary hesitancy and Denies urinary urgency Musc Denies atrophy, Denies deformity and Denies limited range of motion Skin/Breast Denies bleeding lesions, Denies changing lesions and Denies rash Physical exam (Primary Care) Vital Signs: Last Vital Signs BP 138/80 01/15/24 10:05 BMI result Body Mass Index 40.6 BMI Assessment/Plan discussion: High BMI High, discussed plan: lifestyle, weight reduction, dietary and physical activity Tobacco/Smoking Status: Tobacco use Status Tobacco use date assessed 07/09/23 01/15/24 09:50 Patient Tobacco Use Status Former Tobacco user 01/15/24 09:50 Tobacco use type Cigarette 01/15/24 09:50 e-Cigarette/Vaping Use Never Used 01/15/24 09:50 Thrive Assessment: Date of Thrive Assessment Date Thrive assessed 07/09/23 01/15/24 09:50 Resp Effort & Inspection: normal respiratory effort Auscultation: clear to auscultation bilaterally Cardio Jugular venous distension: no JVD Rate: regular rate Rhythm: regular rhythm Heart sounds: S1 normal heart sound present and S2 normal heart sound present Extrem General: Yes full ROM Coding Level of Care Code Est Pt Level 4 (53179) Complex EM visit Add On G2211 Diagnoses Essential hypertension I10 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 Blood pressure goal is equal or less than 130/80. (2) Hypothyroidism: Code(s): E03.9 - Hypothyroidism, unspecified Category: Medical Qualifiers: Hypothyroidism type: due to Lola's thyroiditis Qualified Code(s): E06.3 - Autoimmune thyroiditis Plan: Continue levothyroxine. Monitor TSH. (3) Iron deficiency anemia: Code(s): D50.9 - Iron deficiency anemia, unspecified Category: Medical Qualifiers: Iron deficiency anemia type: chronic blood loss Qualified Code(s): D50.0 - Iron deficiency anemia secondary to blood loss (chronic) Plan: Continue ferrous sulfate. Monitor hemoglobin. (4) Morbid obesity: Code(s): E66.01 - Morbid (severe) obesity due to excess calories Category: Medical Plan: Referred to weight management. BMI goal is less than 30. Continue diet and exercise. (5) Bipolar 1 disorder: Code(s): F31.9 - Bipolar disorder, unspecified Category: Medical Plan: Declines treatment. Orders: Orders MM tomosynthesis screening BI Today Z12.31 - Encounter for screening mammogram for malignant neoplasm of breast Complete Blood Count Auto Diff Today D64.9 - Anemia, unspecified Thyroid Stimulating Hormone Today E03.9 - Hypothyroidism, unspecified IRON PROFILE Today D64.9 - Anemia, unspecified Vitamin D 25-OH Total Today E55.9 - Vitamin D deficiency, unspecified Referrals Medical Weight Management Referral E66.01 - Morbid (severe) obesity due to excess calories
[2024-01-15 09:50] VITALS: BP 148/82; BMI 40.6
[2024-01-15 10:05] VITALS: BP 138/80
== END 2024-01-15 10:06 | disposition home or self-care (01) ==
LOC: HO.HMCH 09:46
PROVIDERS: PCP Internal Medicine; Visit Provider Internal Medicine
DX: I10 Essential (primary) hypertension (principal); E66.01 Morbid (severe) obesity due to excess calories; F31.9 Bipolar disorder, unspecified; Z68.41 Body mass index [BMI] 40.0-44.9, adult; E06.3 Autoimmune thyroiditis; D50.0 Iron deficiency anemia secondary to blood loss (chronic)

== ENCOUNTER 2024-01-15 09:45 | Outpatient (REF) | payer OTHER, MEDICAID, SELFPAY ==
[2024-01-15 10:42] LABS: MANUAL DIFF FLAG NO
[2024-01-15 11:03] LABS: Basophils Absolute Auto 0.1 X10*3/uL (0.0-0.2); Basophils Percent Auto 1.1 % (0-2); Eosinophils Absolute Auto 0.3 X10*3/uL (0.0-0.4); Eosinophils Percent Auto 3.5 % (0-4); Hematocrit 34.5 % (37.0-47.0); Hemoglobin 10.8 g/dl (12.0-16.0); Imm Gran Abs Auto 0.04 X10*3/uL (0.00-0.03); Imm Gran Pct Auto 0.4 % (0.0-0.4); Lymphocytes Absolute Auto 3.3 X10*3/uL (1.2-4.9); Lymphocytes Percent Auto 34.9 % (20-40); Mean Corpuscular HGB Conc 31.3 g/dl (31.0-35.0); Mean Corpuscular Hemoglobin 25.6 pg (27.0-33.0); Mean Corpuscular Volume 81.8 fL (80.0-98.0); Mean Platelet Volume 10.8 fL (9.4-12.3); Monocytes Absolute Auto 0.9 X10*3/uL (0.1-1.2); Monocytes Percent Auto 9.7 % (2-11); Neutrophils Absolute Auto 4.8 x10*3/uL (2.0-8.3); Neutrophils Percent Auto 50.4 % (45-73); Platelet Count 300 X10*3/uL (160-400); Red Blood Count 4.22 X10*6/uL (4.20-5.50); Red Cell Distribution Width 14.6 % (11.0-16.0); White Blood Count 9.4 X10*3/uL (4.8-10.8)
[2024-01-15 11:51] LABS: Iron 32 mcg/dL (30-160); Percent Iron Saturation 10 % (15-50); Total Iron Binding Capacity 328 mcg/dL (228-428); Unsaturated Iron Binding 296 ug/dL
[2024-01-15 12:00] LABS: Thyroid Stimulating Hormone 3.82 uIU/mL (0.32-4.0)
== END 2024-01-15 09:46 | disposition home or self-care (01) ==
LOC: HO.LAB 09:45
PROVIDERS: PCP Internal Medicine; Visit Provider Internal Medicine
DX: D64.9 Anemia, unspecified (principal); E03.9 Hypothyroidism, unspecified; E55.9 Vitamin D deficiency, unspecified
CPT/HCPCS: 36415; 82306; 83540; 84443; 85025

== ENCOUNTER 2024-04-24 14:01 | Outpatient (REF) | payer OTHER, SELFPAY | END 2024-04-24 14:02 | disposition home or self-care (01) | LOC: HO.MAMMO 14:01 | PROVIDERS: PCP Internal Medicine; Visit Provider Internal Medicine | DX: Z12.31 Encounter for screening mammogram for malignant neoplasm of breast (principal) | CPT/HCPCS: 77063; 77067 ==

== ENCOUNTER → 2024-04-24 14:15 | Outpatient (BNV) | payer OTHER, SELFPAY | PROVIDERS: PCP Internal Medicine; Visit Provider Internal Medicine | DX: Z12.31 Encounter for screening mammogram for malignant neoplasm of breast (principal) | CPT/HCPCS: 77063; 77067 ==

== ENCOUNTER 2024-05-20 23:16 | Emergency (ER) | payer OTHER, SELFPAY ==
[2024-05-20 23:27] VITALS: BP 156/78; PULSE 93; RESP 18; TEMP 37; O2SAT 98; BMI 40.6
[2024-05-21 02:00] VITALS: BP 166/70; PULSE 76; RESP 18; TEMP 36.8; O2SAT 98
[2024-05-21 02:39] LABS: MANUAL DIFF FLAG NO
[2024-05-21 02:40] LABS: Basophils Absolute Auto 0.1 X10*3/uL (0.0-0.2); Basophils Percent Auto 1.1 % (0-2); Eosinophils Absolute Auto 0.3 X10*3/uL (0.0-0.4); Eosinophils Percent Auto 3.6 % (0-4); Hemoglobin 10.5 g/dl (12.0-16.0); Imm Gran Abs Auto 0.02 X10*3/uL (0.00-0.03); Imm Gran Pct Auto 0.2 % (0.0-0.4); Lymphocytes Percent Auto 34.5 % (20-40); Mean Corpuscular HGB Conc 31.8 g/dl (31.0-35.0); Mean Corpuscular Hemoglobin 25.4 pg (27.0-33.0); Mean Corpuscular Volume 79.9 fL (80.0-98.0); Mean Platelet Volume 10.6 fL (9.4-12.3); Monocytes Absolute Auto 0.8 X10*3/uL (0.1-1.2); Monocytes Percent Auto 9.3 % (2-11); Neutrophils Absolute Auto 4.5 x10*3/uL (2.0-8.3); Neutrophils Percent Auto 51.3 % (45-73); Platelet Count 303 X10*3/uL (160-400); Red Blood Count 4.13 X10*6/uL (4.20-5.50); Red Cell Distribution Width 14.8 % (11.0-16.0); White Blood Count 8.7 X10*3/uL (4.8-10.8)
[2024-05-21 03:00] LABS: Alanine Aminotransferase 18 U/L (0-31); Albumin Level 4.2 g/dL (3.5-5.0); Anion Gap 13 (12-20); Aspartate Amino Transferase 20 U/L (5-31); Bilirubin Total 0.2 mg/dL (0.0-1.0); Blood Urea Nitrogen 17 mg/dL (9-16); Calcium 9.3 mg/dL (8.4-10.2); Carbon Dioxide 22 mmol/L (22-29); Chloride 109 mmol/L (96-108); Creatinine Clr Calc Pharmacy 118.2; Estimated Glomerular Filt Rate > 60; Glucose Random 103 mg/dL (60-115); Potassium 4.1 mmol/L (3.3-5.1); Sodium 140 mmol/L (135-145); Total Protein 7.6 g/dL (6.5-8.0)
[2024-05-21 03:33] LABS: Alkaline Phosphatase 100 U/L (39-117)
[2024-05-21 05:11] VITALS: BP 144/67; PULSE 78; RESP 18; TEMP 36.4; O2SAT 98
[2024-05-21] MEDS: Fluorescein Sodium STRIP 1 STRIP EYE-RIGHT (06:12)
--- NOTE | 2024-05-21 07:25 | ED_ITS ---
HPI - Eye Problem General Chief complaint: Eye Problems Stated complaint: floaters in eyes Time Seen by Provider: 05/21/24 05:59 Source: patient Mode of arrival: ambulatory Limitations: no limitations History of Present Illness ED Provider: Dr. Grace Schneider HPI Narrative: patient comes to the emergency room complaining of almost 2-1/2 days seeing floaters of her right eye. Patient states that there is a squiggly line in the middle of her eye vision. Patient states that whenever she moves her eyes towards the right side, she sees flashes of light lasting a few seconds. Patient denies any eye trauma. Patient states that the left I she has no problems seeing. Patient states that she has no pain on either eye. Related Data Previous Rx's ?Medication ?Instructions ?Recorded levothyroxine 50 mcg tablet 50 mcg PO DAILY 90 days #90 tabs 12/04/23 cholecalciferol (vitamin D3) 25 25 mcg PO DAILY 90 days #90 caps 12/30/23 mcg (1,000 unit) capsule amlodipine 10 mg tablet 10 mg PO DAILY 90 days #90 tabs 12/31/23 hydrocortisone 1 % topical cream 1 appl topical TID PRN skin 02/22/24 (Anti-Itch (hydrocortisone)) irritation 30 days #28.4 grams ferrous sulfate 325 mg (65 mg 325 mg PO DAILY 90 days #90 tabs 05/03/24 iron) tablet Allergies Allergy/AdvReac Type Severity Reaction Status Date / Time amoxicillin Allergy Intermediate hives Verified 05/20/24 23:37 Review of Systems 2 Review of Systems: Constitutional : No Weight loss, No Fever, No Chills, No Night Sweats, No Fatigue, No Malaise ENT/Mouth : No Hearing loss, No Ear Pain, No Nasal Congestion, No Sinus Pain, No Hoarseness, No sore throat, No Rhinorrhea, No Swallowing Difficulty Eyes: No Eye Pain, No Swelling, No Redness, No Foreign Body, No Discharge, Complaining of seeing a squiggly line of the right eye, flashes of light when she moves her eyeballs towards the right. Cardiovascular : No Chest Pain, No SOB, No Dyspnea on Exertion, No Orthopnea, No Edema, No Palpitations Respiratory : No Cough, No Sputum, No Wheezing, No Smoke Exposure, No Dyspnea Gastrointestinal : No Nausea, No Vomiting, No Diarrhea, No Constipation, No abdominal Pain, No Hematochezia, No Melena Genitourinary : no irregular bleeding, No Dysuria, No Urinary Frequency, No Hematuria, No Urinary Incontinence, No Urgency, No Flank Pain, No Urinary Flow Changes, No Hesitancy Musculoskeletal : No joint pain, No Myalgias, No Joint Swelling Skin : No Skin Lesions, No rash Neuro : No Weakness, No Numbness, No Paresthesias, No Loss of Consciousness, No Dizziness, No Headache Psych : No Anxiety/Panic, No Depression, No SI/HI/AH/VH, No Social Issues, Heme/Lymph: No Bruising, No Bleeding,No Lymphadenopathy Endocrine : No Polyuria, No Polydipsia, No Temperature Intolerance [facility] Past Medical History Medical History Eczema Physical exam History of trigger finger Essential hypertension EDEN (generalized anxiety disorder) Elevated blood pressure reading in office without diagnosis of hypertension Pain of right thumb Iron deficiency anemia Hypothyroidism Right shoulder pain Morbid obesity Bipolar 1 disorder Surgical History Trigger finger of right thumb History of tubal ligation History of laparoscopic cholecystectomy Family History Family History Father No problems noted. Mother Diabetes Hypertension Maternal Grandmother Diabetes Hypertension Stroke Maternal Aunt Diabetes Hypertension CVD (cardiovascular disease) Social History Social History Housing: Apartment Alcohol intake: never Patient Tobacco Use Status: Former Tobacco user Tobacco use type: Cigarette Smoked in Last 30 Days: No e-Cigarette/Vaping Use: Never Used Second Hand Smoke Exposure: No Use of substances other than those prescribed or required for medical reasons: No Advance Directives: No service: No Current occupational status: employed Current occupation: rt hand Current occupational exposures/hazards: No Cognitive needs: No Hearing needs: No Vision needs: Yes Physical Exam 2 Vital Signs: Vital Signs: Last Vital Signs Temp 97.6 F 05/21/24 05:11 Pulse 78 05/21/24 05:11 Resp 18 05/21/24 05:11 BP 144/67 H 05/21/24 05:11 Pulse Ox 98 05/21/24 05:11 O2 Del Method Room Air 05/21/24 05:11 BMI result Body Mass Index 40.6 Const: Other: Appearance: Alert. Oriented X3. No acute distress. Eyes: Pupils equal, round and reactive to light. On fluorescein stain, negative Kylah test. Right eye 20/25, 2 mmHg. Left eye: 20/15, 12.5 mmHg. Bedside ultrasound does not show any abnormality that would indicate that there is a retinal detachment. ENT: Pharynx normal. Neck: Normal inspection. Neck supple. No lymph nodes noted. No crepitus CVS: Normal heart rate and rhythm. Pulses normal. Normal S1 and S2 Respiratory: No respiratory distress. Breath sounds normal. No Wheezing. No rales Abdomen: Soft and nontender. No rigidity. No distention. Skin: Skin warm and dry. Normal skin color. Normal skin turgor. Extremities: No lower extremity edema. No Lacerations. No Rash Neuro: Oriented X 3. No motor deficit. No sensory deficit. Moving all extremities. No slurred speech. CN 2 through 12 grossly intact Psych: calm, cooperative, normal affect Medications Administered Discontinued Medications Generic Name Dose Route Start Last Admin Trade Name Freq PRN Reason Stop Dose Admin Fluorescein Sodium 1 strip 05/21/24 06:06 05/21/24 06:12 Fluorescein Sodium Strip EYE-RIGHT 05/21/24 06:07 1 strip ONCE ONE Administration Medical Decision Making Medical Decision Making [facility] Narrative: I sent a message to Dr. Norman our regulatory submissions specialist regarding this patient's physical exam. today, Dr. Norman has an appointment opening at 11:20. I discussed this with the patient, patient is welcome to go from here to his office and wait for a potential opening or show up at 11:15 for her appointment. Patient is very grateful that Dr. Norman's office was able to accommodate her and she will be there today for her appointment. Differential Diagnosis Differential Diagnoses: The differential diagnosis associated with the presentation includes ( Vitreous hemorrhage, retinal detachment) Lab Data MDM Lab Attestation statement: I reviewed the patient's lab results. 05/21/24 02:34 05/21/24 02:34 Labs: Lab Results 05/21/24 Range/Units 02:34 WBC 8.7 (4.8-10.8) X10*3/uL RBC 4.13 L (4.20-5.50) X10*6/uL Hgb 10.5 L (12.0-16.0) g/dl Hct 33.0 L (37.0-47.0) % MCV 79.9 L (80.0-98.0) fL MCH 25.4 L (27.0-33.0) pg MCHC 31.8 (31.0-35.0) g/dl RDW 14.8 (11.0-16.0) % Plt Count 303 (160-400) X10*3/uL MPV 10.6 (9.4-12.3) fL Immature Gran % (Auto) 0.2 (0.0-0.4) % Neut % (Auto) 51.3 (45-73) % Lymph % (Auto) 34.5 (20-40) % Lamb % (Auto) 9.3 (2-11) % Eos % (Auto) 3.6 (0-4) % Baso % (Auto) 1.1 (0-2) % Lymph # (Auto) 3.0 (1.2-4.9) X10*3/uL Lamb # (Auto) 0.8 (0.1-1.2) X10*3/uL Eos # (Auto) 0.3 (0.0-0.4) X10*3/uL Baso # (Auto) 0.1 (0.0-0.2) X10*3/uL Abs Immat Gran (auto) 0.02 (0.00-0.03) X10*3/uL Absolute Neuts (auto) 4.5 (2.0-8.3) x10*3/uL Absolute Nucleated RBC 0.000 (0.0-0.012) X10*3/uL Nucleated RBC % (auto) 0.0 (0.0-0.2) /100WBC Sodium 140 (135-145) mmol/L Potassium 4.1 (3.3-5.1) mmol/L Chloride 109 H (96-108) mmol/L Carbon Dioxide 22 (22-29) mmol/L Anion Gap 13 (12-20) BUN 17 H (9-16) mg/dL Creatinine 0.69 (0.5-1.4) mg/dL Estim Creat Clear Calc 118.2 Estimated GFR > 60 Random Glucose 103 (60-115) mg/dL Calcium 9.3 (8.4-10.2) mg/dL Total Bilirubin 0.2 (0.0-1.0) mg/dL AST 20 (5-31) U/L ALT 18 (0-31) U/L Alkaline Phosphatase 100 (39-117) U/L Total Protein 7.6 (6.5-8.0) g/dL Albumin 4.2 (3.5-5.0) g/dL Critical Care Time Critical Care Time Critical Care Time: Yes Total Critical Care Time: 35 Attestation: I have personally provided critical care time. Time includes review of lab data, radiology results, discussion with consultants, and monitoring for potential decompensation. Intervention performed as documented. Discharge Plan Discharge Clinical Impression: Vitreous floaters of right eye Patient Disposition: Home, Self-Care Instructions: Visual Floaters (ED) Additional Instructions: You have an appointment today at 11:[address] Norman's office. Please do not miss this appointment. It is very likely that you may have to pay [id number] due to insurance Coverage. Please follow-up with your primary care physician tomorrow. If you have any worsening or new symptoms, please return to the emergency room or call 911 Prescriptions: No Action levothyroxine 50 mcg tablet 50 mcg PO DAILY 90 Days Qty: 90 1RF cholecalciferol (vitamin D3) 25 mcg (1,000 unit) capsule 25 mcg PO DAILY 90 Days Qty: 90 1RF amlodipine 10 mg tablet 10 mg PO DAILY 90 Days Qty: 90 1RF hydrocortisone [Anti-Itch (HC)] 1 % cream 1 appl topical TID PRN (Reason: skin irritation) 30 Days Qty: 28.4 1RF ferrous sulfate 325 mg (65 mg iron) tablet 325 mg PO DAILY 90 Days Qty: 90 0RF Referrals: Tor Nomran [Physician] - 05/21/24 11:20 am Print Language: Lao
[2024-05-21 08:16] VITALS: BP 144/67; PULSE 78; RESP 18; TEMP 36.4; O2SAT 98
== END 2024-05-21 08:16 | disposition home or self-care (01) ==
PROVIDERS: Emergency Provider Emergency Medicine; PCP Internal Medicine
DX: H43.393 Other vitreous opacities, bilateral (principal); Z87.891 Personal history of nicotine dependence
CPT/HCPCS: 36415; 80053; 85025; 99283; 99284

== ENCOUNTER 2024-05-25 20:44 | Emergency (ER) | payer OTHER, SELFPAY ==
[2024-05-25 20:52] VITALS: BP 155/70; PULSE 100; RESP 20; TEMP 36.8; O2SAT 100; BMI 39.8
--- NOTE | 2024-05-25 20:59 | ED_ITS ---
HPI - General Adult General Chief complaint: General Medical Stated complaint: panic attack/high blood pressure Time Seen by Provider: 05/25/24 21:56 History of Present Illness ED Provider: Rolly MCCLURE narrative: The patient is a 54-year-old woman who says this afternoon while on the bus she developed a subconjunctival hemorrhage. She says she has had these in the past. She says that she was recently diagnosed with glaucoma. She had come to the emergency room here last week with visual symptoms and was referred to Dr. Norman who saw her in the office several days ago and prescribed drops for some degree of glaucoma. She says that the subconjunctival hemorrhage made her very worried about her eyes and very upset. She went to work. While she was at work she became more and more anxious and felt that she was having a panic attack. 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 Her blood pressure was elevated and she was advised to leave work and come to the emergency room. While waiting to be seen here she is feeling much calmer. She has no visual symptoms today. Related Data Previous Rx's ?Medication ?Instructions ?Recorded levothyroxine 50 mcg tablet 50 mcg PO DAILY 90 days #90 tabs 12/04/23 cholecalciferol (vitamin D3) 25 25 mcg PO DAILY 90 days #90 caps 12/30/23 mcg (1,000 unit) capsule amlodipine 10 mg tablet 10 mg PO DAILY 90 days #90 tabs 12/31/23 hydrocortisone 1 % topical cream 1 appl topical TID PRN skin 02/22/24 (Anti-Itch (hydrocortisone)) irritation 30 days #28.4 grams ferrous sulfate 325 mg (65 mg 325 mg PO DAILY 90 days #90 tabs 05/03/24 iron) tablet Allergies Allergy/AdvReac Type Severity Reaction Status Date / Time amoxicillin Allergy Intermediate hives Verified 05/25/24 20:54 Review of Systems Review of Systems: Yes all other systems are reviewed and are negative [facility] Past Medical History Medical History Eczema Physical exam History of trigger finger Essential hypertension EDEN (generalized anxiety disorder) Elevated blood pressure reading in office without diagnosis of hypertension Pain of right thumb Iron deficiency anemia Hypothyroidism Right shoulder pain Morbid obesity Bipolar 1 disorder Surgical History Trigger finger of right thumb History of tubal ligation History of laparoscopic cholecystectomy Family History Family History Father No problems noted. Mother Diabetes Hypertension Maternal Grandmother Diabetes Hypertension Stroke Maternal Aunt Diabetes Hypertension CVD (cardiovascular disease) Social History Social History Housing: Apartment Alcohol intake: never Patient Tobacco Use Status: Former Tobacco user Tobacco use type: Cigarette e-Cigarette/Vaping Use: Never Used Second Hand Smoke Exposure: No Advance Directives: No Advance Directives Information Provided: Yes Do you have a plan to hurt others: No Plan service: No Current occupational status: employed Current occupation: rt hand Current occupational exposures/hazards: No Cognitive needs: No Hearing needs: No Vision needs: Yes Physical Exam ED Vital Signs: Vital Signs - 24 hr 05/25/24 20:52 05/25/24 23:30 Temperature 98.2 F 98.2 F Pulse Rate 100 77 Respiratory Rate 20 18 Blood Pressure 155/70 H 147/81 H Pulse Oximetry 100 100 Oxygen Delivery Method Room Air Room Air BMI result Body Mass Index 39.8 Const Other: The patient is awake, alert, pleasant, cooperative. She looks somewhat chronic ally ill but not acutely ill. HENMT Other: Face is symmetrical, mucous membranes moist. Eyes Other: There is some subconjunctival hemorrhage to the medial aspect of the right eye. Pupils are round equal and reactive, extraocular movements are intact. Eyelids are normal. Neck Neck: Yes normal visual inspection and Yes full ROM Resp Effort & Inspection: normal respiratory effort Auscultation: clear to auscultation bilaterally Cardio Rate: regular rate Rhythm: regular rhythm Heart sounds: S1 normal heart sound present and S2 normal heart sound present Skin Other: The skin is dry and unremarkable Neuro Other: The patient is awake, alert, pleasant, cooperative, mental status is normal. Cranial nerves 2-12 are intact. She moves her extremities normally and appropriately. She has a normal gait. Extrem Other: No peripheral edema. Course Course Course Narrative: This is a Rapid Medical Examination (RME) performed by Clair Solo PA-C in triage. Full HPI, ROS, assessment and treatment plan per primary provider in the Main ED. 42 yo female with HTN and recently diagnosed glaucoma, anxiety/panic attacks presents to the ER for evaluation after she developed a panic attack at [facility] [employer] [facility] where she works. VS there showed HR 140s and SBP 170s. Plan: VS improved here. appears anxious. will reassess Medical Decision Making Medical Decision Making MDM Narrative: The patient is a 54-year-old woman who seems to have developed a spontaneous left some conjunctival hematoma earlier today. She has been worried about her eyes because she was recently diagnosed with glaucoma for which she has started taking eyedrops. She says that she has been particularly anxious about being diagnosed with glaucoma because her mother apparently went blind from glaucoma. The patient says that she arrived work and became more and more anxious about her eyes and ultimately felt that she had a panic attack. 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 Apparently her blood pressure was elevated at work. Here the patient is feeling much less anxious and panicky. She says that she has a history of panic attacks and she felt that she was definitely having a panic attack earlier. On my exam the patient has a subconjunctival hemorrhage but no other concerning findings. She is reassured. She should continue her regular medications and follow up with your regular doctors. Discharge Plan Discharge Clinical Impression: Subconjunctival hematoma Patient Disposition: Home, Self-Care Instructions: Subconjunctival Hemorrhage (ED) Additional Instructions: You seemed to have developed a subconjunctival hematoma or hemorrhage. This is a benign condition that is not an indication of any other more concerning process. Please continue your regular eyedrops. Please continue your other medications. Please plan on following up with your regular doctor to discuss your concern about a return or worsening of your anxiety symptoms. Please also follow up with your eye doctor as scheduled. Return to the emergency room if significantly worse. Prescriptions: No Action levothyroxine 50 mcg tablet 50 mcg PO DAILY 90 Days Qty: 90 1RF cholecalciferol (vitamin D3) 25 mcg (1,000 unit) capsule 25 mcg PO DAILY 90 Days Qty: 90 1RF amlodipine 10 mg tablet 10 mg PO DAILY 90 Days Qty: 90 1RF hydrocortisone [Anti-Itch (HC)] 1 % cream 1 appl topical TID PRN (Reason: skin irritation) 30 Days Qty: 28.4 1RF ferrous sulfate 325 mg (65 mg iron) tablet 325 mg PO DAILY 90 Days Qty: 90 0RF Referrals: Tor Norman [Physician] - Nancy Gaitan MD [Primary Care Provider] - Stand Alone Forms: Work/School Release Interventions: ED Discharge Assessment Last Done: 05/25/24 23:30 Discharge Date/Time: 05/25/24 23:30 Print Language: Persian
[2024-05-25 23:30] VITALS: BP 147/81; PULSE 77; RESP 18; TEMP 36.8; O2SAT 100
== END 2024-05-25 23:30 | disposition home or self-care (01) ==
PROVIDERS: Emergency Provider Emergency Medicine; PCP Internal Medicine
DX: S05.12XA Contusion of eyeball and orbital tissues, left eye, initial encounter (principal); X58.XXXA Exposure to other specified factors, initial encounter; F41.9 Anxiety disorder, unspecified; Z87.891 Personal history of nicotine dependence; Y93.9 Activity, unspecified; Y92.9 Unspecified place or not applicable; Y99.9 Unspecified external cause status
CPT/HCPCS: 99282

== ENCOUNTER 2024-06-03 13:40 | Outpatient (AMB) | payer OTHER, SELFPAY ==
--- NOTE | 2024-06-03 14:12 | MHC.OFFVISPS ---
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 Pt reports she has always veen an anxious person but has been able to manage most of the time. she had panic attacks in her 20s after her son was born; she was on a number of meds which did not help until she was put on valium that helped stop the panic attacks and she was on that for a number of year until she felt she didn't need anymore and stopped. she has been off psych meds for a number of years. .Recently she had a recurrence of panic attacks which started a couple months ago and then worsened after an eye appt in which she was diagnosed with glaucoma. she tells me her mother went blind from glaucoma and she became very anxious and fearful after that appt. she went to ED due topanic attack recently and had to leave work due to panic. although record indicates Bipolar DO pt says it was dx at age 17 after pt had outburst with her mother and was hospitalized in [facility]; pt denies anyother hospitalizations; she does report depression at times but no periods of george. No tobacco, etoh, THC or other drug use. Pt had LMP 2 months ago and her periods are irregular. she has had hot flashes, changes in BP and at times wakes up 15 min after falling asleep with racing heart that wakes her. We discussed she may be experiencing vanessa-menapause symptoms. Sheis alos working overnight shift for past 8 months which jacki lso very difficult; she has not been ablet o dsleep for more than 4 hours in am and then tries to take a nap later before going into work. PHQ9=17 and GAD7= 18. she has passive SI but no plan and no intent to harm slef Past Psychiatric History: one IPLOC age 17 outpt tx at [facility] and then with PCP Subjective Subjective Subjective Medication Compliance: Yes Side effects from medications: No Review of Systems Medical Review of Systems: unchanged Mental Status Exam Mental Status Exam Patient Appearance: Well Grooomed and Appropriate Patient Orientation: Person, Place, Time and Situation Level of Consciousness: Awake, Appropriate and Alert Patient Behavior: Appropriate, Guarded (initially) and Good Eye Contact Mood Description: Anxious Affect Description: Anxious Patient Cognition Impaired: No Ability to Follow Directions: Good Speech Pattern: Clear, Appropriate and Coherent Memory Description: Intact Hallucinations: None Delusions: Not Present Thought Process: Intact and Goal Oriented Thought Content: positive for Intact and positive for Goal Oriented Judgement: Good Assessment and Plan Assessment & Plan (1) Panic attacks: Status: Acute Code(s): F41.0 - Panic disorder [episodic paroxysmal anxiety] (2) Tachycardia: Status: Acute Code(s): R00.0 - Tachycardia, unspecified (3) EDEN (generalized anxiety disorder): Status: Acute Code(s): F41.1 - Generalized anxiety disorder Plan ekg trial of valium 1-2 mg at bedtime discussed ssri consideration discussed metoprolol or propranolol discussed triggers to panic attacks: fatigue, decreases sleep, low blood sugar, dehydration, low BP, high stress. pt will try to eat protein every 3 hours stay hydrated return for f/u in 4 weeks Medications: New diazepam (Valium) 2 mg PO BEDTIME PRN 30 tabs 0RF sleep Orders: Orders ECG 12 lead EKG Today F41.0 - Panic disorder [episodic paroxysmal anxiety], R00.0 - Tachycardia, unspecified Counseling and coordination of Care Pt. Self Management counseling: Maintenance-social rhythm, Med illness tx adherence, Mod caffeine/ETOH intake, Nutrition education and improvement and Sleep hygiene Medication management counseling: Effectiveness, Side effects, Dosing range, Duration, Drug interaction and Adherence Diagnosis and Prognosis Counseling: Accuracy of diagnosis, Prognosis over time, Impact of diagnosis on life functions, Impact of family relationship, Problematic behaviors secondary to diagnosis and Adequacy of current interventions Details: I spent [] minutes reviewing the record, seeing the patient and documenting in the medical record. Counseling provided to the patient/caregiver as outlined below. Addressed patient/caregiver concerns regarding current medication regime including effective adherence. Addressed patient/caregiver concerns regarding diagnosis and prognosis including accuracy of diagnosis, prognosis over time, impact of diagnosis. Addressed patient/caregiver concerns regarding impact of recent stressors. [facility] Medical History (Updated 06/03/24 @ 15:07 by Ana Perez APRN) Eczema Physical exam History of trigger finger Essential hypertension EDEN (generalized anxiety disorder) Elevated blood pressure reading in office without diagnosis of hypertension Pain of right thumb Iron deficiency anemia Hypothyroidism Right shoulder pain Morbid obesity Bipolar 1 disorder Surgical History Trigger finger of right thumb History of tubal ligation History of laparoscopic cholecystectomy Family History Father No problems noted. Mother Diabetes Hypertension Maternal Grandmother Diabetes Hypertension Stroke Maternal Aunt Diabetes Hypertension CVD (cardiovascular disease) Social History Housing: Apartment Alcohol intake: never Patient Tobacco Use Status: Former Tobacco user Tobacco use type: Cigarette e-Cigarette/Vaping Use: Never Used Second Hand Smoke Exposure: No service: No Current occupational status: employed Current occupation: rt hand Current occupational exposures/hazards: No Cognitive needs: No Hearing needs: No Vision needs: Yes Coding Level of Care Code Psych Diag Eval w/Med (15259) Diagnoses Panic attacks F41.0 Tachycardia R00.0 EDEN (generalized anxiety disorder) F41.1
== END 2024-06-03 15:13 | disposition home or self-care (01) ==
LOC: HO.HOP 13:40
PROVIDERS: PCP Internal Medicine; Visit Provider Clinical Nurse Specialist Psychiatric/Mental Health
DX: F41.0 Panic disorder [episodic paroxysmal anxiety] (principal); R00.0 Tachycardia, unspecified; F41.1 Generalized anxiety disorder
CPT/HCPCS: 90792

== ENCOUNTER → 2024-06-03 13:40 | Outpatient (REF) | payer OTHER, SELFPAY ==
--- NOTE | 2024-06-03 15:09 | ECG_ITS ---
Test Reason : f41.0 Blood Pressure : */* mmHG Vent. Rate : 96 BPM Atrial Rate : 96 BPM P-R Int : 144 ms QRS Dur : 76 ms QT Int : 352 ms P-R-T Axes : 50 11 10 degrees QTcB Int : 444 ms Normal sinus rhythm Low voltage QRS Borderline ECG When compared with ECG of 01-Jul-2008 16:24, No significant change was found Referred By: Ana Perez Electronically Signed By: CAMILLE CARSON MD
== END ==
LOC: HO.CARD 13:40
PROVIDERS: PCP Internal Medicine; Visit Provider Clinical Nurse Specialist Psychiatric/Mental Health
DX: F41.0 Panic disorder [episodic paroxysmal anxiety] (principal); R00.0 Tachycardia, unspecified
CPT/HCPCS: 93005

== ENCOUNTER → 2024-06-03 15:09 | Outpatient (BNV) | payer OTHER, SELFPAY | PROVIDERS: PCP Internal Medicine; Visit Provider Internal Medicine Cardiovascular Disease | DX: F41.0 Panic disorder [episodic paroxysmal anxiety] (principal) | CPT/HCPCS: 93010 ==

== ENCOUNTER 2024-07-03 09:59 | Outpatient (AMB) | payer OTHER, SELFPAY ==
--- NOTE | 2024-07-03 10:19 | MHC.OFFVISPS ---
Intake Intake Visit Reasons: f/u consultation Allergies amoxicillin Allergy (Intermediate, Verified 05/25/24 20:54) hives Medication List - Last Reconciled 07/03/24 by Ana Perez APRN amlodipine 10 mg PO DAILY 90 days cholecalciferol (vitamin D3) 25 mcg PO DAILY 90 days diazepam (Valium) 2 mg PO BEDTIME PRN ferrous sulfate 325 mg PO DAILY 90 days hydrocortisone 1% (Anti-Itch (hydrocortisone)) 1 appl topical TID PRN 30 days levothyroxine 50 mcg PO DAILY 90 days HPI- Psychiatric Chief Complaint: f/u consultation HPI Narrative: Pt seen for follow up on panic attacks; she is taking valium 1mg at bedtime; she reportsshe feels much improved; no panic attacks since starting and sleeping well. 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 PHQ9=9 down from 17 and GAD7 = 6 down from 18. she will continue to take the valium 1 mg at bedtime for a month and then can taper to 1/4 tab (0.5mg) and then stop; we discussed options if she need medication longer term - recommend trileptal or lamictal. Past Psychiatric History: one IPLOC age 17 outpt tx at [facility] and then with PCP; dx with bipolar when age 17- never had manic episode prozac worked for depression but not for anxiety; paxil= irritable, zoloft= angry, buspar=no effect, xanax in past, seroquel= gained excessive weight, leg pain. Subjective Subjective Subjective Medication Compliance: Yes Side effects from medications: No Review of Systems Medical Review of Systems: unchanged Mental Status Exam Mental Status Exam Patient Appearance: Well Grooomed Patient Orientation: Person, Place, Time and Situation Level of Consciousness: Awake and Appropriate Patient Behavior: Appropriate and Cooperative Mood Description: Cheerful and Anxious (mildly) Affect Description: Appropriate Patient Cognition Impaired: No Ability to Follow Directions: Good Speech Pattern: Clear Memory Description: Intact Hallucinations: None Delusions: Not Present Thought Process: Intact and Goal Oriented Thought Content: positive for Intact and positive for Goal Oriented Judgement: Good Assessment and Plan Assessment & Plan (1) Panic attacks: Status: Acute Code(s): F41.0 - Panic disorder [episodic paroxysmal anxiety] Plan EKG reviewed essentially normal and no change from previous continue valium 1 mg at bedtime x 30 days then 0.5mg daily x 14 days then stop consider trileptal or lamictal if need longer term return in 4 weeks Medications: Refilled diazepam (Valium) 2 mg PO BEDTIME PRN 30 tabs 0RF sleep Counseling and coordination of Care Pt. Self Management counseling: Mod caffeine/ETOH intake, Nutrition education and improvement and Problem solving Medication management counseling: Effectiveness, Side effects, Dosing range, Duration, Drug interaction and Adherence Diagnosis and Prognosis Counseling: Accuracy of diagnosis, Prognosis over time, Impact of diagnosis on life functions and Adequacy of current interventions Details: I spent 35 minutes reviewing the record, seeing the patient and documenting in the medical record. Counseling provided to the patient/caregiver as outlined below. Addressed patient/caregiver concerns regarding current medication regime including effective adherence. Addressed patient/caregiver concerns regarding diagnosis and prognosis including accuracy of diagnosis, prognosis over time, impact of diagnosis. Addressed patient/caregiver concerns regarding impact of recent stressors. [facility] Medical History (Updated 06/03/24 @ 15:07 by Ana Perez APRN) Eczema Physical exam History of trigger finger Essential hypertension EDEN (generalized anxiety disorder) Elevated blood pressure reading in office without diagnosis of hypertension Pain of right thumb Iron deficiency anemia Hypothyroidism Right shoulder pain Morbid obesity Bipolar 1 disorder Surgical History Trigger finger of right thumb History of tubal ligation History of laparoscopic cholecystectomy Family History Father No problems noted. Mother Diabetes Hypertension Maternal Grandmother Diabetes Hypertension Stroke Maternal Aunt Diabetes Hypertension CVD (cardiovascular disease) Social History Housing: Apartment Alcohol intake: never Patient Tobacco Use Status: Former Tobacco user Tobacco use type: Cigarette e-Cigarette/Vaping Use: Never Used Second Hand Smoke Exposure: No service: No Current occupational status: employed Current occupation: rt hand Current occupational exposures/hazards: No Cognitive needs: No Hearing needs: No Vision needs: Yes Coding Level of Care Code Est Pt Level 4 (81051) Diagnoses Panic attacks F41.0
--- OUTSIDE RECORDS SUMMARY | 2024-07-03 11:22 | XMS_ITS | Continuity of Care Document ---
Author Organization [facility] Address [address] [place] [address] Insurance Providers Payer Plan Claims Address Claims Phone Policy Number Group Number Relation Employer Guarantor Name Guarantor Guarantor Address Guarantor Phone Yanira oliva PATTIEChrista Lukeu n Laury [employer] [facility] [id number] [place] [address] [facility] [id number] 1970 [address] [place] [address] Problems Condition ICD9 code ICD10 code SNOMED code Start Date End Date S tatus Encounter for screening for other metabolic disorders Z13.228 Results No Results Allergies, adverse reactions, alerts No known allergies and adverse reactions Medications No administered medications reported Vital Signs No vital signs reported Social History No smoking Hx information available
== END 2024-07-03 10:36 | disposition home or self-care (01) ==
LOC: HO.HOP 09:59
PROVIDERS: PCP Internal Medicine; Visit Provider Clinical Nurse Specialist Psychiatric/Mental Health
DX: F41.0 Panic disorder [episodic paroxysmal anxiety] (principal)
CPT/HCPCS: 99214

== ENCOUNTER 2024-07-16 12:54 | Outpatient (AMB) | payer OTHER, MEDICAID, SELFPAY ==
--- NOTE | 2024-07-16 12:56 | A.OFFPC_ITS ---
Vital Signs 07/16/24 12:57 Height 5 ft 5 in Weight 244 lb BMI 40.6 BP 134/82 Blood Pressure Location Lt brachial Position Sitting Intake Visit Reasons: annual exam Intake Note: Patient here for an annual physical exam Financial Administrative Assistant Required: No Accompanied by: Self / Same As Patient Allergies amoxicillin Allergy (Intermediate, Verified 07/16/24 13:05) hives Medication List - Last Reconciled 07/16/24 by Nancy Rondon MD amlodipine 10 mg PO DAILY 90 days brimonidine 0.2% 1 drp ophthalmic (eye) Q8H cholecalciferol (vitamin D3) 25 mcg PO DAILY 90 days diazepam (Valium) 2 mg PO BEDTIME PRN ferrous sulfate 325 mg PO DAILY 90 days hydrocortisone 1% (Anti-Itch (hydrocortisone)) 1 appl topical TID PRN 30 days levothyroxine 50 mcg PO DAILY 90 days Tobacco use date assessed: 07/16/24 Dental Screening Dental Screen Date: 07/16/24 Did you have a dental visit in the last 12 months?: No Did you have a dental problem in the last 6 months where you did not have access to dental care?: No Was dental information given to patient?: Patient declined HPI HPI Comments History of Present Illness Details The patient is a 54-year-old female presenting for a wellness visit and comprehensive medical evaluation. She provides a history of anxiety and panic attacks, initially worsening with overnight work shifts and now improving with transition to a daytime schedule. Anxiety symptoms mainly during nighttime lay reviewing sleep, managed with intermittent use of Valium. Additionally, glaucoma was diagnosed about 1.5 months ago, which increased her anxiety due to her family history of blindness from this condition. She is on brimonidine 0.2% eye drops, administrating them in both eyes twice daily. Health screenings reveal a history of fluctuations in hemoglobin levels, with a recent test showing hemoglobin at 10.5, a slight drop from 10.8 previously. The last thyroid assessment was performed in January and reported as normal. There is a background of essential hypertension and primary hypothyroidism being controlled with amlodipine and levothyroxine respectively. Family history reveals maternal conditions of diabetes, hypertension, and multiple strokes contributing to the mother's at age 65. Behaviors such as alcohol consumption are denied, while smoking was ceased 16 years prior. Mild depression is acknowledged but lacks chronic medication intervention as present. - Recent blood work includes hemoglobin level (10.5), slight decrease from previous (10.8) - Last thyroid assessment in January (n ormal) - Screening mammogram completed in [place] - Tdap vaccine administration planned to day; last vaccine in 1995 - Discussions regarding referral to [facility] ht management programs [place] and [facility] initiated, requiring follow-up for contact - Completion of glaucoma management plan with brimonidine drop use in both eyes [facility] Medical History Eczema Physical exam History of trigger finger Essential hypertension EDEN (generalized anxiety disorder) Elevated blood pressure reading in office without diagnosis of hypertension Pain of right thumb Iron deficiency anemia Hypothyroidism Right shoulder pain Morbid obesity Bipolar 1 disorder Surgical History Trigger finger of right thumb History of tubal ligation History of laparoscopic cholecystectomy Family History Father No problems noted. Mother Diabetes Hypertension Maternal Grandmother Diabetes Hypertension Stroke Maternal Aunt Diabetes Hypertension CVD (cardiovascular disease) Social History Housing: Apartment Alcohol intake: never Patient Tobacco Use Status: Former Tobacco user Tobacco use type: Cigarette e-Cigarette/Vaping Use: Never Used Second Hand Smoke Exposure: No service: No Current occupational status: employed Current occupation: rt hand Current occupational exposures/hazards: No Cognitive needs: No Hearing needs: No Vision needs: Yes Questionnaire PHQ-9 Over the last 2 weeks, how often have you been bothered by any of the following problems? 1. Little interest or pleasure in doing things: several days 2. Feeling down, depressed, or hopeless: several days 3. Trouble falling or staying asleep, or sleeping too much: several days 4. Feeling tired or having little energy: several days 5. Poor appetite or overeating: several days 6. Feeling bad about yourself - or that you are a failure or have let yourself or your family down: several days 7. Trouble concentrating on things, such as reading the newspaper or watching television: more than half the days 8. Moving or speaking so slowly that other people could have noticed. Or the opposite - being so fidgety or restless that you have been moving around a lot more than usual: not at all 9. Thoughts that you would be better off or of hurting yourself in some way: several days Total score: 9 Depression Screening Interpretation: Positive Depression Screening Follow-up: Existing condition, In treatment, Community Mental Health Worker F/U and Follow- up Visit Requested Depression Screening Done: Yes 76890 - PHQ-9 Billing: Yes Source: Developed by Drs. Colt Woo, Nina Acuña, Rico Jarquin and colleagues, with an educational codi from [employer]. Thrive Questionnaire Date Thrive assessed: 07/16/24 I am a: Patient What is your living situation today?: I have a steady place to live Within the past 12 months, did the food you bought not last and you didn't have the money to get more?: Never true Within the past 12 months, did you worry whether your food would run out before you got money to buy more?: Never true Do you have trouble paying for medicines?: No Do you have trouble getting transportation to medical appointments?: No Do you have trouble paying your heating and electricity bill?: No Do you have trouble taking care of your child, family member or friend?: No Do you have trouble with day-to-day activities such as bathing, preparing meals, shopping, managing finances, etc.?: No Are you currently unemployed and looking for a job?: No Are you interested in more education?: Yes Please select the resources that you would like help with: None Currently or been in a relationship where the following occur: No concerns reported THRIVE Score: 0 AUDIT C Alcohol Use Questionnaire (AUDIT-C) 1. How often do you have a drink containing alcohol?: Never Total Score: 0 Score Reviewed/Action Taken: No EDEN-7 AMB Questionnaire EDEN-7 Date EDEN - 7 assessed: 07/16/24 Feeling nervous, anxious, or on edge: 2 = More than half the days Not being able to stop or control worryin = More than half the days Worrying too much about different things: 2 = More than half the days Trouble relaxin = More than half the days Being so restless that it is hard to sit still: 1 = Several days Becoming easily annoyed or irritable: 1 = Several days Feeling afraid as if something awful might happen: 2 = More than half the days Total EDEN-7 score (0-4 normal; 5-9 mild; 10-14 moderate; 15-21 severe): 12 Source: Developed by Drs. Colt Woo, Nina Acuña, Rico Jarquin and colleagues, with an educational codi from [employer]. EDEN-7 Assessment Billing EDEN-7 Assessment Tool: EDEN-7 Assessment 85020 Review of Systems Const All systems reviewed & are unremarkable except as noted in HPI and below Eyes Reports no additional complaints, Denies change in vision and Denies other visual disturbances Card Denies chest pain at rest, Denies chest pain with activity, Denies edema, Denies irregular heart rhythm, Denies claudication, Denies dyspnea, Denies dyspnea on exertion, Denies orthopnea, Denies paroxysmal nocturnal dyspnea and Denies slow heart rate Resp Denies cough, Denies dyspnea and Denies dyspnea on exertion GI Denies abdominal pain, Denies change in bowel habits, Denies excessive flatus, Denies nausea and Denies vomiting Neuro Denies lack of coordination Physical exam (Primary Care) Vital Signs: Last Vital Signs BP 134/82 07/16/24 12:57 BMI result Body Mass Index 40.6 BMI Assessment/Plan discussion: High BMI High, discussed plan: lifestyle, weight reduction, dietary and physical activity Tobacco/Smoking Status: Tobacco use Status Tobacco use date assessed 07/16/24 07/16/24 13:01 Patient Tobacco Use Status Former Tobacco user 07/16/24 13:01 Tobacco use type Cigarette 07/16/24 13:01 e-Cigarette/Vaping Use Never Used 07/16/24 13:01 PHQ-9: PHQ-9 Score PHQ-9: Total score 9 07/16/24 13:11 Depression Screening Interpretation: Positive Depression Screening Follow-up: Existing condition, In treatment, Community Mental Health Worker F/U and Follow- up Visit Requested Thrive Assessment: Date of Thrive Assessment Date Thrive assessed 07/16/24 07/16/24 13:01 Currently or been in a relationship where the following occur: No concerns reported HENMT Head: Yes normal to inspection, Yes normocephalic and Yes atraumatic Ears: external ears normal Eyes General: appearance normal, both eyes and all related structures Eyelids: Yes eyelids normal Conjunctivae: conjunctivae normal Neck Neck: Yes normal visual inspection and Yes supple Resp Effort & Inspection: normal respiratory effort Auscultation: clear to auscultation bilaterally Cardio Jugular venous distension: no JVD Rate: regular rate Rhythm: regular rhythm Heart sounds: S1 normal heart sound present and S2 normal heart sound present GI Inspection: Yes normal to inspection Palpation (GI): Soft to palpation and nontender Auscultation: normal bowel sounds Skin General skin exam: no rashes or lesions noted Neuro General: no focal motor deficits Extrem General: Yes full ROM Psych Appearance: grossly normal Immunizations Boostrix Tdap 2.5 Lf unit-8 mcg-5 Lf/0.5 mL intramuscular syringe Performing Provider: Nancy Rondon MD [facility] Administered by: JEFFRY Marcos on 07/16/24 13:23 Dose Route Admin Location Dispensed Lot Number Expiration Date ND Sales Service Assistant 0.5 mL IM Left Deltoid 0.5 mL [id number] 11/04/26 14239-986-46 [employer] VIS Given Date VIS Provided VIS Publication Date 07/16/24 Single Vaccine 24 Eligibility Eligibility Date Funding Source Not [facility] Eligible 07/16/24 Private Coding Level of Care Code Est Pt Prev Care 40-64y(88292) Diagnoses Physical exam Z00.00 Morbid obesity E66.01 Additional Codes PHQ-9 - 08543 - PHQ-9 Billing: Yes ([id number]) EDEN-7 Assessment Billing - EDEN-7 Assessment Tool: EDEN-7 Assessment 02380 ([id number]) Time Spent (min) 31 Assessment & Plan Assessment & Plan (1) Physical exam: Code(s): Z00.00 - Encounter for general adult medical examination without abnormal findings Category: Medical (2) Morbid obesity: Code(s): E66.01 - Morbid (severe) obesity due to excess calories Category: Medical Plan 1. To investigate ongoing care needs, blood tests will help reassess the thyroid function, vitamin D, cholesterol, and glucose levels. Referral to the [place] [facility] program was discussed, optimizing further support in manageable weight strategies. Psychological evaluations with the psychiatric support team, particularly nurse practitioner involvement, ensure epilepsy and panic disorder control is maintained. Brimonidine continues to control her ocular pressure due to glaucoma, administered in a bilateral routine.: Patient was informed and verbally consented to the use of an ambient scribe for clinic note documentation during this visit. Today, I addressed the necessary administration of the Tdap vaccine and the timeline since her last vaccination. We discussed routine blood work to revisit her thyroid function, vitamin D, cholesterol, and glucose level assessments as crucial monitoring facets, particularly the concern of anemia over recent history. Regarding anxiety, the discussion emphasized the importance of engaging in multidisciplinary psychiatric care with nurse-led support to evaluate the need for any pharmacotherapy adjustments. Notably, additional focus on glaucoma management substantiates ongoing brimonidine use, appreciating risks given family history considerations and managing pressure bilaterally. Weight management initiatives refocus with a fresh referral, ensuring accessibility toward [place] [facility] strategies. Orders: Orders TDaP Immunization Today Z23 - Encounter for immunization Thyroid Stimulating Hormone Today E06.3 - Autoimmune thyroiditis Comprehensive [place]. Panel Fast Today Z00.00 - Encounter for general adult medical examination without abnormal findings Vitamin D 25-OH Total Today E55.9 - Vitamin D deficiency, unspecified Lipid Panel Today Z00.00 - Encounter for general adult medical examination without abnormal findings Medications: New Boostrix Tdap (diphth,pertus(acell),tetanus) 0.5 mL IM ONCE 0.5 mL 0RF NS Z23 - Encounter for immunization Patient Instructions: - Return to the office for the Tdap vaccine today - Schedule blood work for thyroid, vitamin D, liver, kidney, cholesterol, and sugar evaluation - Follow up with weight management program referral to [place] - Continue applying brimonidine eye drops as prescribed for glaucoma - Maintain regular psychiatric consultations to review anxiety and panic attack management - Monitor health regularly and seek care if unusual symptoms arise
[2024-07-16 12:57] VITALS: BP 134/82; BMI 40.6
== END 2024-07-16 13:24 | disposition home or self-care (01) ==
LOC: HO.HMCH 12:55
PROVIDERS: PCP Internal Medicine; Visit Provider Internal Medicine
DX: Z00.00 Encounter for general adult medical examination without abnormal findings (principal); E66.01 Morbid (severe) obesity due to excess calories; Z68.41 Body mass index [BMI] 40.0-44.9, adult; Z23 Encounter for immunization

== ENCOUNTER → 2024-07-16 12:54 | Outpatient (BNVA) | payer OTHER, SELFPAY | PROVIDERS: PCP Internal Medicine; Visit Provider Internal Medicine | DX: Z00.00 Encounter for general adult medical examination without abnormal findings (principal); Z23 Encounter for immunization; Z01.818 Encounter for other preprocedural examination; E66.01 Morbid (severe) obesity due to excess calories; Z68.41 Body mass index [BMI] 40.0-44.9, adult; R10.13 Epigastric pain | CPT/HCPCS: 90471; 90715; 96127 ==

== ENCOUNTER 2024-07-16 14:28 | Outpatient (AMB) | payer OTHER, SELFPAY ==
[2024-07-16 14:30] VITALS: BP 169/81; PULSE 95; O2SAT 97; BMI 41.2
--- NOTE | 2024-07-16 14:30 | A.OFFVIS_ITS ---
Vital Signs 3 07/16/24 14:30 Height 5 ft 5 in Weight 247 lb 5.738 oz BMI 41.2 BP 169/81 H Blood Pressure Location Lt brachial Position Sitting Pulse 95 Pulse Source Pulse Oximeter Pulse Oximetry (%) 97 Oxygen Delivery Method Room Air Intake Visit Reasons: Colonoscopy Screening Intake Note: Pt presents to the office today for a colonoscopy screening. Allergies amoxicillin Allergy (Intermediate, Verified 07/16/24 14:30) hives HPI HPI Colonoscopy Screening: Details: 54-year-old female here for preprocedural meeting to discuss a screening colonoscopy. She is referred by Nancy Gaitan. PMX Morbid obesity Hypertension Hypothyroid Eczema Depression/anxiety/panic attacks/bipolar 1 disorder Trigger finger right thumb [place] * SURGICAL HISTORY Cholecystectomy Tubal ligation Trigger finger release right thumb * ALLERGIES Amoxicillin * [facility] LABS: Laboratory Tests 05/21/24 02:34 WBC 8.7 Hgb 10.5 L Hct 33.0 L MCV 79.9 L MCH 25.4 L Plt Count 303 Estimated GFR > 60 Total Bilirubin 0.2 AST 20 ALT 18 Alkaline Phosphatase 100 TODAY'S VISIT The is her first colonoscopy. She has been having increasing stomach aches and discomfort over ulysses past few years. She has associated gas and bloating. NO N/V or trouble swallowing. She denies any CIC or diarrhea. She only has occasional HB resolves with Pepto Bismol. With this and her anemia we should likely do an EGD. She has chronic menorrhagia and will be seeing her RACING SECRETARY in August as she has not seen them in 3 years. Oral iron upsets her stomach even with a meal. She tries to take it but not daily. She may have MEGHAN as she will occasionaly wake up coughing but no other respiratory problems and no cardiac problems. NO ID problems. No anes or sed problems. THere is no known FHX of crc rpolyps [facility] Medical History (Updated 07/16/24 @ 15:37 by FABIEN Hernandez) Pain of right thumb Physical exam Screening for cervical cancer Screen for colon cancer Physical exam Eczema History of trigger finger Essential hypertension EDEN (generalized anxiety disorder) Elevated blood pressure reading in office without diagnosis of hypertension Iron deficiency anemia Hypothyroidism Right shoulder pain Morbid obesity Bipolar 1 disorder Surgical History Trigger finger of right thumb History of tubal ligation History of laparoscopic cholecystectomy Family History Father No problems noted. Mother Diabetes Hypertension Maternal Grandmother Diabetes Hypertension Stroke Maternal Aunt Diabetes Hypertension CVD (cardiovascular disease) Social History Housing: Apartment Alcohol intake: never Patient Tobacco Use Status: Former Tobacco user Tobacco use type: Cigarette e-Cigarette/Vaping Use: Never Used Second Hand Smoke Exposure: No service: No Current occupational status: employed Current occupation: rt hand Current occupational exposures/hazards: No Cognitive needs: No Hearing needs: No Vision needs: Yes Review of Systems Const Denies fatigue, Denies fever(s), Denies night sweats, Denies poor appetite and Denies weight loss Eyes Details: glasses Reports requires corrective lenses ENT Reports Normal hearing present, Denies dental pain, Denies dysphagia, Denies hearing loss, Denies mouth pain, Denies odynophagia, Denies throat swelling, Denies tongue swelling and Reports other (Dentition adequate) Card Reports no additional complaints Resp Reports cough GI Details: Denies abdominal pain, Denies melena, Reports bloating, Denies hematochezia, Denies constipation, Denies GI cramping, Denies dysphagia, Denies excessive flatus, Denies early satiety, Reports dyspepsia, Reports heartburn, Denies diarrhea, Denies nausea, Denies odynophagia, Denies vomiting and Denies hematemesis Reports abnormal vaginal bleeding Skin/Breast Denies pruritus, Denies lesions, Denies rash and Denies jaundice Neuro Reports Normal hearing present and Denies Abnormal speech present Endo Denies fatigue Aller/Immun Denies throat swelling and Denies tongue swelling Physical Exam Vital Signs: Last Vital Signs Pulse 95 07/16/24 14:30 BP 169/81 H 07/16/24 14:30 Pulse Ox 97 07/16/24 14:30 Oxygen Delivery Method Room Air 07/16/24 14:30 BMI result Body Mass Index 41.2 Const General: cooperative, no acute distress, well developed and well groomed Nutritional Appearance: well nourished and obese morbidly obese Orientation/consciousness: oriented to person, oriented to place and oriented to time Limitations: No language barrier HEENT Head: Yes normocephalic and Yes atraumatic Eyes General: appearance normal, both eyes and all related structures Pupils: Equal, round and reactive pupils present Neck Neck: Yes normal visual inspection and Yes no lymphadenopathy Thyroid: Thyroid normal Resp Effort & Inspection: normal respiratory effort and able to speak in complete sentences Auscultation: clear to auscultation bilaterally Cardio Rate: regular rate Rhythm: regular rhythm Heart sounds: Normal, physiologic split S2 sound present Peripheral pulses: radial pulses present and posterior tibial pulses present GI Inspection: No distended, Yes Abdominal panniculus present and Yes obesity Palpation (GI): Soft to palpation, nontender, no guarding, not rigid and No hepatosplenomegaly present Percussion: Yes normal to percussion Auscultation: normal bowel sounds Rectal Exam - Female: deferred Abdomen image: 2 1. surgical scar Skin General skin exam: no rashes or lesions noted, turgor normal, skin not dry, no jaundice, No spider nevi and no striae Rashes: no rashes Nails: normal Neuro General: oriented to person, oriented to place and oriented to time Cranial nerves: Yes Equal, round and reactive pupils present and Yes Normal hearing present Speech: No Abnormal speech present Extrem General: Yes normal to inspection, No clubbing, No cyanosis and Yes edema (mild pitting) Psych Appearance: grossly normal and well kempt Mental Status: mental status grossly normal Speech and movement: Normal speech and movement present Affect: normal affect Attitude: cooperative Thought process: Normal thought process present and not confabulating Thought content: Normal thought content present Insight: Good insight present (Psych) Judgement: Good judgement present (Psych) Assessment & Plan Assessment & Plan (1) Pre-op examination: Code(s): Z01.818 - Encounter for other preprocedural examination Category: Medical (2) Morbid obesity: Code(s): E66.01 - Morbid (severe) obesity due to excess calories Category: Medical (3) Dyspepsia: Code(s): R10.13 - Epigastric pain Category: Medical Plan The is her first colonoscopy. She has been having increasing stomach aches and discomfort over ulysses past few years. She has associated gas and bloating. NO N/V or trouble swallowing. She denies any CIC or diarrhea. She only has occasional HB resolves with Pepto Bismol. With this and her anemia we should likely do an EGD. She has chronic menorrhagia and will be seeing her RACING SECRETARY in August as she has not seen them in 3 years. Oral iron upsets her stomach even with a meal. She tries to take it but not daily. She may have MEGHAN as she will occasionally wake up coughing but no other respiratory problems and no cardiac problems. NO ID problems. No anes or sed problems. THere is no known FHX of crc rpolyps Orders: Orders 2 EGD/[place] Combo - GI Use Only 07/16/24 H Pylori Breath Test 07/16/24 R10.13 - Epigastric pain Medications: New 2 sodium,potassium,mag sulfates 17.5-3.13-1.6 gram (Suprep Bowel Prep Kit) 480 mL orally; FOR COLONOSCOPY PREP 354 mL 0RF Coding Level of Care Code New Pt Level 3 (64582) Diagnoses Pre-op examination Z01.818 Morbid obesity E66.01 Dyspepsia R10.13
== END 2024-07-16 16:04 | disposition home or self-care (01) ==
LOC: HO.HGI 14:29
PROVIDERS: PCP Internal Medicine; Visit Provider Nurse Practitioner
DX: Z01.818 Encounter for other preprocedural examination (principal); Z12.11 Encounter for screening for malignant neoplasm of colon; R10.13 Epigastric pain; E66.01 Morbid (severe) obesity due to excess calories
CPT/HCPCS: 99202

== ENCOUNTER 2024-07-16 16:54 | Outpatient (REF) | payer OTHER, SELFPAY ==
[2024-07-18 11:33] LABS: H Pylori Breath Test Negative (Negative)
== END 2024-07-16 16:55 | disposition home or self-care (01) ==
LOC: HO.LNP 16:54
PROVIDERS: Visit Provider Nurse Practitioner
DX: R10.13 Epigastric pain (principal)
CPT/HCPCS: 83013

== ENCOUNTER 2024-07-21 06:50 | Outpatient (REF) | payer OTHER, SELFPAY ==
[2024-07-21 07:43] LABS: Alanine Aminotransferase 29 U/L (0-31); Albumin Level 4.1 g/dL (3.5-5.0); Anion Gap 13 (12-20); Aspartate Amino Transferase 29 U/L (5-31); Bilirubin Total 0.3 mg/dL (0.0-1.0); Blood Urea Nitrogen 16 mg/dL (9-16); Carbon Dioxide 25 mmol/L (22-29); Chloride 106 mmol/L (96-108); Cholesterol 188 mg/dL (<200); Estimated Glomerular Filt Rate > 60; Glucose Fasting 109 mg/dL (60-99); HDL Cholesterol 59 mg/dL (>40); LDL Cholesterol Calculated 116 mg/dL (<100); Potassium 4.4 mmol/L (3.3-5.1); Sodium 140 mmol/L (135-145); Total Protein 7.2 g/dL (6.5-8.0); Triglycerides 69 mg/dL (<150)
[2024-07-21 08:02] LABS: Thyroid Stimulating Hormone 2.84 uIU/mL (0.32-4.0); Vitamin D 25-OH Total 33.7 ng/mL (>30)
[2024-07-21 08:03] LABS: Alkaline Phosphatase 89 U/L (39-117)
== END 2024-07-21 06:51 | disposition home or self-care (01) ==
LOC: HO.LAB 06:50
PROVIDERS: PCP Internal Medicine; Visit Provider Internal Medicine
DX: Z00.00 Encounter for general adult medical examination without abnormal findings (principal); E55.9 Vitamin D deficiency, unspecified; E06.3 Autoimmune thyroiditis
CPT/HCPCS: 36415; 80053; 80061; 82306; 84443

== ENCOUNTER 2024-07-29 14:27 | Outpatient (AMB) | payer OTHER, SELFPAY ==
--- NOTE | 2024-07-29 14:41 | MHC.OFFVISPS ---
Intake Intake Visit Reasons: f/u consultation Promotion Specialist Required: No Allergies amoxicillin Allergy (Intermediate, Verified 07/16/24 14:30) hives Medication List - Last Reconciled 07/29/24 by Ana Perez APRN amlodipine 10 mg PO DAILY 90 days brimonidine 0.2% 1 drp ophthalmic (eye) Q8H cholecalciferol (vitamin D3) 25 mcg PO DAILY 90 days diazepam (Valium) 2 mg PO BEDTIME PRN ferrous sulfate 325 mg PO DAILY 90 days hydrocortisone 1% (Anti-Itch (hydrocortisone)) 1 appl topical TID PRN 30 days levothyroxine 50 mcg PO DAILY 90 days sodium,potassium,mag sulfates 17.5-3.13-1.6 gram (Suprep Bowel Prep Kit) 480 mL orally; FOR COLONOSCOPY PREP HPI- Psychiatric Chief Complaint: f/u consultation HPI Narrative: pt reports improvement; mood and anxiety is much improved; no panic attacks since switching her work schedule taking valium 3-4 times a week. taking 1/2 tablet (1mg) with good effect Pt is questioning if she has ADHD. She has suspected for a long time due to her forgetfulness and distractibility she had difficulty in school her whole life as a child, she was easily distracted in calss and often forgetful 2 of her children have ADHD. her mind is always busy. she is often distracted by her own thoughts; she is forgetful; she uses many strategies such as list making and alarms on her phone but she will often forget things if she doesn't respond to the alarm right away She completed the updated version of the Adult self report scale and scored 6/7 of the main ADHD symptoms. Past Psychiatric History: one IPLOC age 17 outpt tx at [facility] and then with PCP; dx with bipolar when age 17- never had manic episode prozac worked for depression but not for anxiety; paxil= irritable, zoloft= angry, buspar=no effect, xanax in past, seroquel= gained excessive weight, leg pain. Subjective Subjective Subjective Medication Compliance: Yes Side effects from medications: No Review of Systems Medical Review of Systems: unchanged Mental Status Exam Mental Status Exam Patient Appearance: Well Grooomed Patient Orientation: Person, Place, Time and Situation Level of Consciousness: Awake, Appropriate and Alert Patient Behavior: Appropriate and Cooperative Mood Description: Appropriate and Anxious Affect Description: Appropriate and Anxious Patient Cognition Impaired: No Ability to Follow Directions: Fair Speech Pattern: Clear and Appropriate Memory Description: Intact Hallucinations: None Delusions: Not Present Thought Process: Distracted Thought Content: positive for Intact and positive for Preoccupation Judgement: Good Assessment and Plan Assessment & Plan (1) Panic attacks: Status: Acute Code(s): F41.0 - Panic disorder [episodic paroxysmal anxiety] (2) EDEN (generalized anxiety disorder): Status: Acute Code(s): F41.1 - Generalized anxiety disorder (3) ADHD (attention deficit hyperactivity disorder), inattentive type: Status: Acute Code(s): F90.0 - Attention-deficit hyperactivity disorder, predominantly inattentive type Plan trial of wellbutrin SR 100mg one tab in am stop if increases anxiety or feel herminia restless continue valium 1mg prn return in 6-8 weeks Medications: New bupropion HCl SR (Wellbutrin SR) 100 mg PO QAM 30 tabs 2RF Refilled diazepam (Valium) 2 mg PO BEDTIME PRN 30 tabs 0RF sleep Counseling and coordination of Care Pt. Self Management counseling: Maintenance-social rhythm, Mod caffeine/ETOH intake, Nutrition education and improvement, Sleep hygiene and General coping skills Medication management counseling: Effectiveness, Side effects, Dosing range, Duration, Drug interaction and Adherence Diagnosis and Prognosis Counseling: Accuracy of diagnosis, Prognosis over time, Impact of diagnosis on life functions and Adequacy of current interventions Details: I spent 40 minutes reviewing the record, seeing the patient and documenting in the medical record. Counseling provided to the patient/caregiver as outlined below. Addressed patient/caregiver concerns regarding current medication regime including effective adherence. Addressed patient/caregiver concerns regarding diagnosis and prognosis including accuracy of diagnosis, prognosis over time, impact of diagnosis. Addressed patient/caregiver concerns regarding impact of recent stressors. [facility] Medical History (Updated 07/29/24 @ 16:19 by Ana Perez APRN) Pain of right thumb Physical exam Screening for cervical cancer Screen for colon cancer Physical exam Eczema History of trigger finger Essential hypertension EDEN (generalized anxiety disorder) Elevated blood pressure reading in office without diagnosis of hypertension Iron deficiency anemia Hypothyroidism Right shoulder pain Morbid obesity Bipolar 1 disorder Surgical History Trigger finger of right thumb History of tubal ligation History of laparoscopic cholecystectomy Family History Father No problems noted. Mother Diabetes Hypertension Maternal Grandmother Diabetes Hypertension Stroke Maternal Aunt Diabetes Hypertension CVD (cardiovascular disease) Social History Housing: Apartment Alcohol intake: never Patient Tobacco Use Status: Former Tobacco user Tobacco use type: Cigarette e-Cigarette/Vaping Use: Never Used Second Hand Smoke Exposure: No service: No Current occupational status: employed Current occupation: rt hand Current occupational exposures/hazards: No Cognitive needs: No Hearing needs: No Vision needs: Yes Coding Level of Care Code Est Pt Level 4 (73824) Diagnoses Panic attacks F41.0 EDEN (generalized anxiety disorder) F41.1 ADHD (attention deficit hyperactivity disorder), inattentive type F90.0
== END 2024-07-29 15:24 | disposition home or self-care (01) ==
LOC: HO.HOP 14:27
PROVIDERS: PCP Internal Medicine; Visit Provider Clinical Nurse Specialist Psychiatric/Mental Health
DX: F41.0 Panic disorder [episodic paroxysmal anxiety] (principal); F41.1 Generalized anxiety disorder; F90.0 Attention-deficit hyperactivity disorder, predominantly inattentive type
CPT/HCPCS: 99214

== ENCOUNTER → 2024-07-29 14:27 | Outpatient (BNVA) | payer OTHER, SELFPAY | PROVIDERS: PCP Internal Medicine; Visit Provider Clinical Nurse Specialist Psychiatric/Mental Health ==

== ENCOUNTER 2024-10-02 13:26 | Outpatient (AMB) | payer OTHER, SELFPAY ==
--- NOTE | 2024-10-02 13:38 | MHC.OFFVISPS ---
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 Allergies amoxicillin Allergy (Intermediate, Verified 07/16/24 14:30) hives Medication List - Last Reconciled 10/02/24 by Ana Perez APRN amlodipine 10 mg PO DAILY 90 days brimonidine 0.2% 1 drp ophthalmic (eye) Q8H bupropion HCl SR (Wellbutrin SR) 100 mg PO QAM cholecalciferol (vitamin D3) 25 mcg PO DAILY 90 days diazepam (Valium) 2 mg PO BEDTIME PRN ferrous sulfate 325 mg PO DAILY 90 days hydrocortisone 1% (Anti-Itch (hydrocortisone)) 1 appl topical TID PRN 30 days levothyroxine 50 mcg PO DAILY 90 days sodium,potassium,mag sulfates 17.5-3.13-1.6 gram (Suprep Bowel Prep Kit) 480 mL orally; FOR COLONOSCOPY PREP HPI- Psychiatric Chief Complaint: f/u consultation HPI Narrative: pt reports improvement; mood and anxiety is much improved; no panic attacks since switching her work schedule taking valium 3-4 times a week. taking 1/2 tablet (1mg) with good effect Pt reports wellbutrin seems to be helping her ADHD symptoms but not as much as when she first started it Pt denies side effects from wellbutrin. she is still often distracted by her own thoughts; she is forgetful; she uses many strategies such as list making and alarms on her phone but she will often forget things if she doesn't respond to the alarm right away PHQ9=12 and GAD7=8 she denies SI or HI Past Psychiatric History: one IPLOC age 17 outpt tx at [facility] and then with PCP; dx with bipolar when age 17- never had manic episode proza worked for depression but not for anxiety; paxil= irritable, zoloft= angry, buspar=no effect, xanax in past, seroquel= gained excessive weight, leg pain. Subjective Subjective Subjective Medication Compliance: Yes Side effects from medications: No Review of Systems Medical Review of Systems: unchanged Mental Status Exam Mental Status Exam Patient Appearance: Well Grooomed Patient Orientation: Person, Place, Time and Situation Level of Consciousness: Awake, Appropriate and Alert Patient Behavior: Appropriate and Cooperative Mood Description: Appropriate and Anxious Affect Description: Appropriate and Anxious Patient Cognition Impaired: No Ability to Follow Directions: Fair Speech Pattern: Clear and Appropriate Memory Description: Intact Hallucinations: None Delusions: Not Present Thought Process: Distracted Thought Content: positive for Intact and positive for Preoccupation Judgement: Good Assessment and Plan Assessment & Plan (1) Panic attacks: Status: Acute Code(s): F41.0 - Panic disorder [episodic paroxysmal anxiety] (2) EDEN (generalized anxiety disorder): Status: Acute Code(s): F41.1 - Generalized anxiety disorder (3) ADHD (attention deficit hyperactivity disorder), inattentive type: Status: Acute Code(s): F90.0 - Attention-deficit hyperactivity disorder, predominantly inattentive type Plan Increase wellbutrin XL 150mg qam stop if increases anxiety or feel very restless continue valium 1mg prn return in 6-8 weeks Medications: New bupropion HCl XL (Wellbutrin XL) 150 mg PO QAM 30 tabs 2RF Refilled diazepam (Valium) 2 mg PO BEDTIME PRN 30 tabs 2RF sleep Discontinued bupropion HCl SR (Wellbutrin SR) Discontinued Reason: Doctor's Order 100 mg PO QAM 30 tabs 2RF Counseling and coordination of Care Pt. Self Management counseling: Maintenance-social rhythm, Mod caffeine/ETOH intake, Nutrition education and improvement, Sleep hygiene and General coping skills Medication management counseling: Effectiveness, Side effects, Dosing range, Duration, Drug interaction and Adherence Diagnosis and Prognosis Counseling: Accuracy of diagnosis, Prognosis over time, Impact of diagnosis on life functions and Adequacy of current interventions Details: I spent 40 minutes reviewing the record, seeing the patient and documenting in the medical record. Counseling provided to the patient/caregiver as outlined below. Addressed patient/caregiver concerns regarding current medication regime including effective adherence. Addressed patient/caregiver concerns regarding diagnosis and prognosis including accuracy of diagnosis, prognosis over time, impact of diagnosis. Addressed patient/caregiver concerns regarding impact of recent stressors. [facility] Medical History (Updated 07/29/24 @ 16:19 by Ana Perez APRN) Pain of right thumb Physical exam Screening for cervical cancer Screen for colon cancer Physical exam Eczema History of trigger finger Essential hypertension EDEN (generalized anxiety disorder) Elevated blood pressure reading in office without diagnosis of hypertension Iron deficiency anemia Hypothyroidism Right shoulder pain Morbid obesity Bipolar 1 disorder Surgical History Trigger finger of right thumb History of tubal ligation History of laparoscopic cholecystectomy Family History Father No problems noted. Mother Diabetes Hypertension Maternal Grandmother Diabetes Hypertension Stroke Maternal Aunt Diabetes Hypertension CVD (cardiovascular disease) Social History Housing: Apartment Alcohol intake: never Patient Tobacco Use Status: Former Tobacco user Tobacco use type: Cigarette e-Cigarette/Vaping Use: Never Used Second Hand Smoke Exposure: No service: No Current occupational status: employed Current occupation: rt hand Current occupational exposures/hazards: No Cognitive needs: No Hearing needs: No Vision needs: Yes Coding Level of Care Code Est Pt Level 4 (88447) Diagnoses Panic attacks F41.0 EDEN (generalized anxiety disorder) F41.1 ADHD (attention deficit hyperactivity disorder), inattentive type F90.0
== END 2024-10-02 13:57 | disposition home or self-care (01) ==
LOC: HO.HOP 13:26
PROVIDERS: PCP Internal Medicine; Visit Provider Clinical Nurse Specialist Psychiatric/Mental Health
DX: F41.0 Panic disorder [episodic paroxysmal anxiety] (principal); F41.1 Generalized anxiety disorder; F90.0 Attention-deficit hyperactivity disorder, predominantly inattentive type
CPT/HCPCS: 99214

== ENCOUNTER 2024-10-28 22:04 | Emergency (ER) | payer OTHER, SELFPAY ==
[2024-10-28 22:15] VITALS: BP 188/80; BP 220/120; PULSE 109; PULSE 89; RESP 18; TEMP 36.1; O2SAT 94; O2SAT 98
[2024-10-28 22:38] VITALS: BMI 40.6
[2024-10-28 23:58] VITALS: BP 179/77
--- NOTE | 2024-10-29 00:07 | ECG_ITS ---
Test Reason : dizziness Blood Pressure : */* mmHG Vent. Rate : 88 BPM Atrial Rate : 88 BPM P-R Int : 156 ms QRS Dur : 82 ms QT Int : 364 ms P-R-T Axes : 46 2 14 degrees QTcB Int : 440 ms Normal sinus rhythm Low voltage QRS Borderline ECG When compared with ECG of 03-Jun-2024 15:04, No significant change was found Referred By: Nancy Rondon Electronically Signed By: CAMILLE CARSON MD
[2024-10-29 00:12] LABS: Hematocrit 36.6 % (37.0-47.0); Hemoglobin 12.8 g/dl (12.0-16.0); Imm Gran Abs Auto 0.05 X10*3/uL (0.00-0.03); Imm Gran Pct Auto 0.5 % (0.0-0.4); Lymphocytes Absolute Auto 2.4 X10*3/uL (1.2-4.9); MANUAL DIFF FLAG NO; Mean Corpuscular HGB Conc 35.0 g/dl (31.0-35.0); Mean Corpuscular Hemoglobin 31.4 pg (27.0-33.0); Mean Corpuscular Volume 89.9 fL (80.0-98.0); NRBC Abs Auto 0.000 X10*3/uL (0.0-0.012); NRBC Pct Auto 0.0 /100WBC (0.0-0.2); Platelet Count 252 X10*3/uL (160-400); Red Blood Count 4.07 X10*6/uL (4.20-5.50); White Blood Count 10.2 X10*3/uL (4.8-10.8)
[2024-10-29 00:31] LABS: Alanine Aminotransferase 201 U/L (0-31); Albumin Level 4.6 g/dL (3.5-5.0); Alkaline Phosphatase 128 U/L (39-117); Anion Gap 14 (12-20); Aspartate Amino Transferase 43 U/L (5-31); Blood Urea Nitrogen 19 mg/dL (9-16); Calcium 9.2 mg/dL (8.4-10.2); Carbon Dioxide 24 mmol/L (22-29); Chloride 105 mmol/L (96-108); Creatinine Clr Calc Pharmacy 97.0; Estimated Glomerular Filt Rate > 60; Potassium 3.8 mmol/L (3.3-5.1); Sodium 139 mmol/L (135-145); Total Protein 7.3 g/dL (6.5-8.0)
[2024-10-29 00:39] LABS: Troponin-I High Sensitivity < 2.7 ng/L (<3.5-17.0)
[2024-10-29 02:26] VITALS: BP 142/62; PULSE 82; RESP 16; TEMP 36.3; O2SAT 97
--- NOTE | 2024-10-29 02:52 | ED.DIZZY ---
HPI - Dizziness General Chief Complaint: Dizziness Stated Complaint: panic attack, HTN *220/120 Time Seen by Provider: 10/29/24 02:39 Source: patient and EMS Mode of arrival: EMS Limitations: no limitations History of Present Illness ED Provider: Dr. Fátima Shaa HPI Narrative: 54 year old female with history of panic attacks, HTN, hypothyroidism presenting with chest pain and shortness of breath associated with a panic attack that began at home immediately prior to arrival. States she had just finished having dinner when she began to feel dizzy and anxious. Checked her BP which was elevated at 150/90, which made her even more anxious. Before she was able to take her PRN clonipin, her anxiety became uncontrolled and she felt like she couldn't breathe. [place] as though she might pass out. Did not lose consciouness. Started to feel better as she arrived to the ED. Denies recent illness including fever, cough, nausea, vomiting, diarrhea, urinary complaints, LE edema or pain. Related Data Home Medications ?Medication ?Instructions ?Recorded ?Confirmed brimonidine 0.2 % eye drops 1 drp ophthalmic (eye) Q8H 07/16/24 10/02/24 Previous Rx's ?Medication ?Instructions ?Recorded hydrocortisone 1 % topical cream 1 appl topical TID PRN skin 02/22/24 (Anti-Itch (hydrocortisone)) irritation 30 days #28.4 grams levothyroxine 50 mcg tablet 50 mcg PO DAILY 90 days #90 tabs 06/04/24 amlodipine 10 mg tablet 10 mg PO DAILY 90 days #90 tabs 06/24/24 sodium,potassium,mag sulfates 17.5 480 ml PO .COMPLEX #354 mL 07/16/24 gram-3.13 gram-1.6 gram oral soln (Suprep Bowel Prep Kit) ferrous sulfate 325 mg (65 mg 325 mg PO DAILY 90 days #90 tabs 09/28/24 iron) tablet bupropion HCl 150 mg 24 hr tablet, 150 mg PO QAM #30 tabs 10/02/24 extended release (Wellbutrin XL) diazepam 2 mg tablet (Valium) 2 mg PO BEDTIME PRN sleep #30 tabs 10/02/24 losartan 25 mg tablet 25 mg PO DAILY 90 days #90 tabs 10/29/24 meclizine 25 mg tablet 25 mg PO TID PRN dizziness #14 tabs 10/29/24 cholecalciferol (vitamin D3) 25 25 mcg PO DAILY 90 days #90 caps 10/30/24 mcg (1,000 unit) capsule Allergies Allergy/AdvReac Type Severity Reaction Status Date / Time amoxicillin Allergy Intermediate hives Verified 10/28/24 22:41 Review of Systems Review of Systems: as per HPI, full review of systems performed and negative but for the above mentioned pertinent positives and negatives. REPLACED BY [facility] Past Medical History Medical History Pain of right thumb Physical exam Screening for cervical cancer Screen for colon cancer Physical exam Eczema History of trigger finger Essential hypertension EDEN (generalized anxiety disorder) Elevated blood pressure reading in office without diagnosis of hypertension Iron deficiency anemia Hypothyroidism Right shoulder pain Morbid obesity Bipolar 1 disorder Surgical History Trigger finger of right thumb History of tubal ligation History of laparoscopic cholecystectomy Family History Family History Father No problems noted. Mother Diabetes Hypertension Maternal Grandmother Diabetes Hypertension Stroke Maternal Aunt Diabetes Hypertension CVD (cardiovascular disease) Social History Social History Housing: Apartment Alcohol intake: never Patient Tobacco Use Status: Former Tobacco user Tobacco use type: Cigarette Smoked in Last 30 Days: No e-Cigarette/Vaping Use: Never Used Second Hand Smoke Exposure: No Use of substances other than those prescribed or required for medical reasons: No Advance Directives: No Advance Directives Information Provided: No Patient : No service: No Current occupational status: employed Current occupation: rt hand Current occupational exposures/hazards: No Cognitive needs: No Hearing needs: No Vision needs: Yes Physical Exam Exam: Exam: GENERAL: Anxious, tearful. SKIN: Normal skin color for ethnicity, warm, dry, intact, no rashes noted. HEENT: Normocephalic, atraumatic, no stridor, posterior oropharynx nonerythematous, dentition intact, EOMI. NECK: Soft, supple, full ROM, midline structures nontender, no step-offs, no deformities, no lymphadenopathy. CHEST: Heart regular rhythm, no murmurs, symmetric chest rise and fall, no crepitus. PULMONARY: Clear to auscultation bilaterally, no labored breathing, no wheezes/rhales/ rhonchi. ABDOMINAL: Soft, nondistended, nontender, positive bowel sounds in all quadrants. : Deferred. MUSCULOSKELETAL: Normal tone, full range of motion, no deformities, no peripheral edema. NEURO: Alert and oriented x3, CN II through XII intact, equal strength and sensation bilateral upper and lower extremities, no focal neurologic deficits. PSYCHIATRIC: Anxious affect, tearful, fluid speech, good eye contact and appropriate demeanor. Vital Signs: Vital Signs: Last Vital Signs Temp 97.8 F 10/29/24 05:13 Pulse 83 10/29/24 05:13 Resp 17 10/29/24 05:13 BP 141/73 H 10/29/24 05:13 Pulse Ox 96 10/29/24 05:13 O2 Del Method Room Air 10/29/24 05:13 BMI result Body Mass Index 40.6 Medications Administered Discontinued Medications Generic Name Dose Route Start Last Admin Trade Name Freq PRN Reason Stop Dose Admin Meclizine HCl 50 mg 10/29/24 02:51 10/29/24 03:07 Meclizine Hcl 25 Mg Tablet PO 10/29/24 02:52 50 mg ONCE ONE Administration Medical Decision Making Medical Decision Making [facility] Narrative: Patient presents today with a chief complaint of dizziness, SOB in the setting of panic attacks. Differential diagnosis is extremely broad and includes panic attack, posterior circulation deficits causing vestibular basilar symptoms, anemia, hypovolemia, middle or inner ear problems, intracranial abnormality such as stroke bleed or tumor, electrolyte abnormalities, cardiac arrhythmia, among many others. This patient does not have any focal neurological findings at this time. Workup is reassuring. She is having some fullness to her ears and may be dealing with a bit of BPPV. Will medicate with meclizine and provide with Rx for home. Using shared decision making, plan for discharge home to follow-up with primary care and/or specialist.? Patient understands and agrees with plan for discharge.? Discharged home in stable condition. Differential Diagnosis Differential Diagnoses: The differential diagnosis associated with the presentation includes (as above) Admission/Observation Consideration of admission/observation: Escalation of care including admission/observation considered Lab Data [facility] Lab Attestation statement: I reviewed the patient's lab results. 10/29/24 00:07 10/29/24 00:07 Labs: Lab Results 10/29/24 Range/Units 00:07 WBC 10.2 (4.8-10.8) X10*3/uL RBC 4.07 L (4.20-5.50) X10*6/uL Hgb 12.8 D (12.0-16.0) g/dl Hct 36.6 L (37.0-47.0) % MCV 89.9 (80.0-98.0) fL MCH 31.4 (27.0-33.0) pg MCHC 35.0 (31.0-35.0) g/dl RDW 13.8 (11.0-16.0) % Plt Count 252 (160-400) X10*3/uL MPV 10.3 (9.4-12.3) fL Immature Gran % (Auto) 0.5 H (0.0-0.4) % Neut % (Auto) 65.2 (45-73) % Lymph % (Auto) 23.2 (20-40) % Cavalier % (Auto) 7.6 (2-11) % Eos % (Auto) 2.7 (0-4) % Baso % (Auto) 0.8 (0-2) % Lymph # (Auto) 2.4 (1.2-4.9) X10*3/uL Cavalier # (Auto) 0.8 (0.1-1.2) X10*3/uL Eos # (Auto) 0.3 (0.0-0.4) X10*3/uL Baso # (Auto) 0.1 (0.0-0.2) X10*3/uL Abs Immat Gran (auto) 0.05 H (0.00-0.03) X10*3/uL Absolute Neuts (auto) 6.6 (2.0-8.3) x10*3/uL Absolute Nucleated RBC 0.000 (0.0-0.012) X10*3/uL Nucleated RBC % (auto) 0.0 (0.0-0.2) /100WBC Sodium 139 (135-145) mmol/L Potassium 3.8 (3.3-5.1) mmol/L Chloride 105 (96-108) mmol/L Carbon Dioxide 24 (22-29) mmol/L Anion Gap 14 (12-20) BUN 19 H (9-16) mg/dL Creatinine 0.84 (0.5-1.4) mg/dL Estim Creat Clear Calc 97.0 Estimated GFR > 60 Random Glucose 116 H (60-115) mg/dL Calcium 9.2 (8.4-10.2) mg/dL Total Bilirubin 0.2 (0.0-1.0) mg/dL AST 43 H (5-31) U/L ALT 201 H (0-31) U/L Alkaline Phosphatase 128 H (39-117) U/L Troponin I High Sens < 2.7 (<3.5-17.0) ng/L Total Protein 7.3 (6.5-8.0) g/dL Albumin 4.6 (3.5-5.0) g/dL Independent Historian Clinical information obtained from an independent historian. History obtained from or confirmed by: EMS Prescription Management I considered prescription management with: Other (meclizine) Chronic Conditions Patient?s care impacted by: Hypertension Discharge Plan Discharge Clinical Impression: Vertigo, Episode of hypertension Patient Disposition: Home, Self-Care Instructions: DASH Eating Plan (ED), Hypertension (ED), Dizziness (ED) Additional Instructions: Follow-up with your primary care doctor regarding your blood pressures. You may need additional blood pressure medication if your morning blood pressures continue to be elevated. Try to keep a log of your blood pressure every day until you follow-up with your primary. Return to the ER with any new or worsening symptoms including: Fevers greater than 100?, chest pain, difficulty breathing, worsening dizziness despite meclizine, any new symptom that concerns you. Call 911 with any medical emergency. Prescriptions: New meclizine 25 mg tablet 25 mg PO TID PRN (Reason: dizziness) Qty: 14 0RF No Action hydrocortisone [Anti-Itch (HC)] 1 % cream 1 appl topical TID PRN (Reason: skin irritation) 30 Days Qty: 28.4 1RF levothyroxine 50 mcg tablet 50 mcg PO DAILY 90 Days Qty: 90 1RF amlodipine 10 mg tablet 10 mg PO DAILY 90 Days Qty: 90 1RF ferrous sulfate 325 mg (65 mg iron) tablet 325 mg PO DAILY 90 Days Qty: 90 0RF losartan 25 mg tablet 25 mg PO DAILY 90 Days Qty: 90 0RF cholecalciferol (vitamin D3) 25 mcg (1,000 unit) capsule 25 mcg PO DAILY 90 Days Qty: 90 1RF brimonidine 0.2 % drops 1 drp ophthalmic (eye) Q8H sodium,potassium,mag sulfates [Suprep Bowel Prep Kit] 17.5-3.13-1.6 gram recon soln 480 ml PO .COMPLEX Qty: 354 0RF Rx Instructions: 480 mL orally; FOR COLONOSCOPY PREP bupropion HCl [Wellbutrin XL] 150 mg tablet extended release 24 hr 150 mg PO QAM Qty: 30 2RF diazepam [Valium] 2 mg tablet 2 mg PO BEDTIME PRN (Reason: sleep) Qty: 30 2RF Interventions: ED Discharge Assessment Last Done: 10/29/24 05:13 Discharge Date/Time: 10/29/24 05:18 Print Language: Kinyarwanda
[2024-10-29 05:13] VITALS: BP 141/73; PULSE 83; RESP 17; TEMP 36.6; O2SAT 96
== END 2024-10-29 05:18 | disposition home or self-care (01) ==
PROVIDERS: Emergency Provider Emergency Medicine; PCP Internal Medicine
DX: R42 Dizziness and giddiness (principal); R06.02 Shortness of breath; R07.9 Chest pain, unspecified; I10 Essential (primary) hypertension; E03.9 Hypothyroidism, unspecified
CPT/HCPCS: 36415; 80053; 84484; 85025; 93005; 99283; 99284

== ENCOUNTER → 2024-10-29 00:07 | Outpatient (BNV) | payer OTHER, SELFPAY | PROVIDERS: Emergency Provider Emergency Medicine; PCP Internal Medicine; Visit Provider Internal Medicine Cardiovascular Disease | DX: R42 Dizziness and giddiness (principal) | CPT/HCPCS: 93010 ==

== ENCOUNTER 2024-11-13 10:59 | Outpatient (AMB) | payer OTHER, SELFPAY ==
--- NOTE | 2024-11-13 10:51 | A.OFFPSYCH_ITS ---
Intake Intake Visit Reasons: f/u consultation Concrete Sculptor Required: No Allergies amoxicillin Allergy (Intermediate, Verified 10/28/24 22:41) hives Medication List - Last Reconciled 11/13/24 by Ana Perez APRN amlodipine 10 mg PO DAILY 90 days brimonidine 0.2% 1 drp ophthalmic (eye) Q8H bupropion HCl XL (Wellbutrin XL) 150 mg PO QAM cholecalciferol (vitamin D3) 25 mcg PO DAILY 90 days diazepam (Valium) 2 mg PO BEDTIME PRN ferrous sulfate 325 mg PO DAILY 90 days hydrocortisone 1% (Anti-Itch (hydrocortisone)) 1 appl topical TID PRN 30 days levothyroxine 50 mcg PO DAILY 90 days losartan 25 mg PO DAILY 90 days meclizine 25 mg PO TID PRN sodium,potassium,mag sulfates 17.5-3.13-1.6 gram (Suprep Bowel Prep Kit) 480 mL orally; FOR COLONOSCOPY PREP HPI- Psychiatric Chief Complaint: f/u consultation HPI Narrative: pt reports improvement; mood and anxiety is much improved; has had a few panic attacks and is worrying frequently taking valium 3-4 times a week. taking 1/2 tablet (1mg) with good effect Pt reports wellbutrin seems to be helping her ADHD symptoms but not as much as when she first started it Pt denies side effects from wellbutrin. she is still often distracted by her own thoughts; she is forgetful; she uses many strategies such as list making and alarms on her phone but she will often forget things if she doesn't respond to the alarm right away PHQ9=12 and GAD7=8 she denies SI or HI Past Psychiatric History: one IPLOC age 17 outpt tx at [facility] and then with PCP; dx with bipolar when age 17- never had manic episode prozac worked for depression but not for anxiety; paxil= irritable, zoloft= angry, buspar=no effect, xanax in past, seroquel= gained excessive weight, leg pain. Subjective Subjective Subjective Medication Compliance: Yes Side effects from medications: No Review of Systems Medical Review of Systems: unchanged Mental Status Exam Mental Status Exam Patient Appearance: Well Grooomed Patient Orientation: Person, Place, Time and Situation Level of Consciousness: Awake, Appropriate and Alert Patient Behavior: Appropriate and Cooperative Mood Description: Appropriate and Anxious Affect Description: Appropriate and Anxious Patient Cognition Impaired: No Ability to Follow Directions: Fair Speech Pattern: Clear and Appropriate Memory Description: Intact Hallucinations: None Delusions: Not Present Thought Process: Distracted Thought Content: positive for Intact and positive for Preoccupation Judgement: Good Assessment and Plan Assessment & Plan (1) Panic attacks: Status: Acute Code(s): F41.0 - Panic disorder [episodic paroxysmal anxiety] (2) EDEN (generalized anxiety disorder): Status: Acute Code(s): F41.1 - Generalized anxiety disorder (3) ADHD (attention deficit hyperactivity disorder), inattentive type: Status: Acute Code(s): F90.0 - Attention-deficit hyperactivity disorder, predominantly inattentive type Plan Continue wellbutrin XL 150mg qam trial of lexapro 5mg daily continue valium 1mg prn Will fill out intermittent Medical leave forms for severe anxiety return in 6-8 weeks Medications: New escitalopram oxalate (Lexapro) 5 mg PO DAILY 30 tabs 2RF Orders: Orders TSH reflex Free T4 11/18/24 E06.3 - Autoimmune thyroiditis Complete Blood Count Auto Diff 11/18/24 F41.0 - Panic disorder [episodic paroxysmal anxiety], D50.0 - Iron deficiency anemia secondary to blood loss (chronic) Comprehensive Met. Panel 11/18/24 R74.8 - Abnormal levels of other serum enzymes, I10 - Essential (primary) hypertension, E66.01 - Morbid (severe) obesity due to excess calories Counseling and coordination of Care Pt. Self Management counseling: Maintenance-social rhythm, Mod caffeine/ETOH intake, Nutrition education and improvement, Sleep hygiene and General coping skills Medication management counseling: Effectiveness, Side effects, Dosing range, Duration, Drug interaction and Adherence Diagnosis and Prognosis Counseling: Accuracy of diagnosis, Prognosis over time, Impact of diagnosis on life functions and Adequacy of current interventions Details: I spent 40 minutes reviewing the record, seeing the patient and documenting in the medical record. Counseling provided to the patient/caregiver as outlined below. Addressed patient/caregiver concerns regarding current medication regime including effective adherence. Addressed patient/caregiver concerns regarding diagnosis and prognosis including accuracy of diagnosis, prognosis over time, impact of diagnosis. Addressed patient/caregiver concerns regarding impact of recent stressors. COUNTS INCLUDE 234 BEDS AT THE [facility] Medical History Pain of right thumb Physical exam Screening for cervical cancer Screen for colon cancer Physical exam Eczema History of trigger finger Essential hypertension EDEN (generalized anxiety disorder) Elevated blood pressure reading in office without diagnosis of hypertension Iron deficiency anemia Hypothyroidism Right shoulder pain Morbid obesity Bipolar 1 disorder Surgical History Trigger finger of right thumb History of tubal ligation History of laparoscopic cholecystectomy Family History Father No problems noted. Mother Diabetes Hypertension Maternal Grandmother Diabetes Hypertension Stroke Maternal Aunt Diabetes Hypertension CVD (cardiovascular disease) Social History Housing: Apartment Alcohol intake: never Patient Tobacco Use Status: Former Tobacco user Tobacco use type: Cigarette e-Cigarette/Vaping Use: Never Used Second Hand Smoke Exposure: No service: No Current occupational status: employed Current occupation: rt hand Current occupational exposures/hazards: No Cognitive needs: No Hearing needs: No Vision needs: Yes Coding Level of Care Code Est Pt Level 4 (25671) Diagnoses Panic attacks F41.0 EDEN (generalized anxiety disorder) F41.1 ADHD (attention deficit hyperactivity disorder), inattentive type F90.0
== END 2024-11-13 12:43 | disposition home or self-care (01) ==
LOC: HO.HOP 10:59
PROVIDERS: PCP Internal Medicine; Visit Provider Clinical Nurse Specialist Psychiatric/Mental Health
DX: F41.0 Panic disorder [episodic paroxysmal anxiety] (principal); F41.1 Generalized anxiety disorder; F90.0 Attention-deficit hyperactivity disorder, predominantly inattentive type
CPT/HCPCS: 99214

== ENCOUNTER 2024-11-18 09:58 | Outpatient (REF) | payer OTHER, SELFPAY ==
[2024-11-18 10:17] LABS: MANUAL DIFF FLAG NO
[2024-11-18 10:55] LABS: Hematocrit 40.7 % (37.0-47.0); Hemoglobin 13.9 g/dl (12.0-16.0); Imm Gran Abs Auto 0.03 X10*3/uL (0.00-0.03); Imm Gran Pct Auto 0.3 % (0.0-0.4); Lymphocytes Absolute Auto 2.1 X10*3/uL (1.2-4.9); Mean Corpuscular HGB Conc 34.2 g/dl (31.0-35.0); Mean Corpuscular Hemoglobin 31.2 pg (27.0-33.0); Mean Corpuscular Volume 91.5 fL (80.0-98.0); NRBC Abs Auto 0.000 X10*3/uL (0.0-0.012); NRBC Pct Auto 0.0 /100WBC (0.0-0.2); Platelet Count 224 X10*3/uL (160-400); Red Blood Count 4.45 X10*6/uL (4.20-5.50); White Blood Count 9.3 X10*3/uL (4.8-10.8)
[2024-11-18 11:28] LABS: Alanine Aminotransferase 65 U/L (0-31); Albumin Level 4.5 g/dL (3.5-5.0); Alkaline Phosphatase 106 U/L (39-117); Anion Gap 11 (12-20); Aspartate Amino Transferase 85 U/L (5-31); Blood Urea Nitrogen 19 mg/dL (9-16); Calcium 9.1 mg/dL (8.4-10.2); Carbon Dioxide 28 mmol/L (22-29); Chloride 106 mmol/L (96-108); Estimated Glomerular Filt Rate > 60; Potassium 4.2 mmol/L (3.3-5.1); Sodium 141 mmol/L (135-145); Total Protein 7.2 g/dL (6.5-8.0)
== END 2024-11-18 09:59 | disposition home or self-care (01) ==
LOC: HO.LAB 09:58
PROVIDERS: PCP Internal Medicine; Visit Provider Clinical Nurse Specialist Psychiatric/Mental Health
DX: I10 Essential (primary) hypertension (principal); E66.01 Morbid (severe) obesity due to excess calories; E06.3 Autoimmune thyroiditis; F41.0 Panic disorder [episodic paroxysmal anxiety]; R74.8 Abnormal levels of other serum enzymes; D50.0 Iron deficiency anemia secondary to blood loss (chronic)
CPT/HCPCS: 36415; 80053; 84443; 85025

== ENCOUNTER 2024-12-08 11:38 | Outpatient (AMB) | payer OTHER, SELFPAY ==
--- NOTE | 2024-12-08 11:40 | MHC.OFFVISPS ---
Intake Intake Visit Reasons: f/u consultation Medical Lab Technician Required: No Allergies amoxicillin Allergy (Intermediate, Verified 10/28/24 22:41) hives Medication List - Last Reconciled 12/08/24 by Ana Perez APRN amlodipine 10 mg PO DAILY 90 days brimonidine 0.2% 1 drp ophthalmic (eye) Q8H bupropion HCl XL (Wellbutrin XL) 150 mg PO QAM cholecalciferol (vitamin D3) 25 mcg PO DAILY 90 days diazepam (Valium) 2 mg PO BEDTIME PRN escitalopram oxalate (Lexapro) 5 mg PO DAILY ferrous sulfate 325 mg PO DAILY 90 days hydrocortisone 1% (Anti-Itch (hydrocortisone)) 1 appl topical TID PRN 30 days levothyroxine 50 mcg PO DAILY 90 days losartan 25 mg PO DAILY 90 days meclizine 25 mg PO TID PRN sodium,potassium,mag sulfates 17.5-3.13-1.6 gram (Suprep Bowel Prep Kit) 480 mL orally; FOR COLONOSCOPY PREP HPI- Psychiatric Chief Complaint: f/u consultation HPI Narrative: pt reports improvement; mood and anxiety is much improved; fewer panic attacks tolerating the lexapro and feelsits helping her anxiety and worry taking valium 2-3 times a week. taking 1/2 tablet (1mg) with good effect Pt reports wellbutrin seems to be helping her ADHD symptoms but not as much as when she first started it Pt denies side effects from wellbutrin or lexapro. No sedation or dizziness she is still often distracted by her own thoughts; she is forgetful; she uses many strategies such as list making and alarms on her phone but she will often forget things if she doesn't respond to the alarm right away PHQ9=5 and GAD7=4 she denies SI or HI Past Psychiatric History: one IPLOC age 17 outpt tx at [facility] and then with PCP; dx with bipolar when age 17- never had manic episode prozac worked for depression but not for anxiety; paxil= irritable, zoloft= angry, buspar=no effect, xanax in past, seroquel= gained excessive weight, leg pain. Subjective Subjective Subjective Medication Compliance: Yes Side effects from medications: No Review of Systems Medical Review of Systems: unchanged Mental Status Exam Mental Status Exam Patient Appearance: Well Grooomed Patient Orientation: Person, Place, Time and Situation Level of Consciousness: Awake, Appropriate and Alert Patient Behavior: Appropriate and Cooperative Mood Description: Appropriate and Anxious Affect Description: Appropriate and Anxious Patient Cognition Impaired: No Ability to Follow Directions: Fair Speech Pattern: Clear and Appropriate Memory Description: Intact Hallucinations: None Delusions: Not Present Thought Process: Distracted Thought Content: positive for Intact and positive for Preoccupation Judgement: Good Assessment and Plan Assessment & Plan (1) Panic attacks: Status: Acute Code(s): F41.0 - Panic disorder [episodic paroxysmal anxiety] (2) EDEN (generalized anxiety disorder): Status: Acute Code(s): F41.1 - Generalized anxiety disorder (3) ADHD (attention deficit hyperactivity disorder), inattentive type: Status: Acute Code(s): F90.0 - Attention-deficit hyperactivity disorder, predominantly inattentive type Plan Continue wellbutrin XL 150mg qam lexapro 5mg daily valium 1mg prn return in 8 weeks Medications: New escitalopram oxalate 10 mg PO DAILY 90 tabs 0RF Refilled bupropion HCl XL (Wellbutrin XL) 150 mg PO QAM 30 tabs 2RF diazepam (Valium) 2 mg PO BEDTIME PRN 30 tabs 2RF sleep Discontinued escitalopram oxalate Discontinued Reason: Doctor's Order 5 mg PO DAILY 30 tabs 2RF Counseling and coordination of Care Pt. Self Management counseling: Maintenance-social rhythm, Mod caffeine/ETOH intake, Nutrition education and improvement, Sleep hygiene and General coping skills Medication management counseling: Effectiveness, Side effects, Dosing range, Duration, Drug interaction and Adherence Diagnosis and Prognosis Counseling: Accuracy of diagnosis, Prognosis over time, Impact of diagnosis on life functions and Adequacy of current interventions Details: I spent 35 minutes reviewing the record, seeing the patient and documenting in the medical record. Counseling provided to the patient/caregiver as outlined below. Addressed patient/caregiver concerns regarding current medication regime including effective adherence. Addressed patient/caregiver concerns regarding diagnosis and prognosis including accuracy of diagnosis, prognosis over time, impact of diagnosis. Addressed patient/caregiver concerns regarding impact of recent stressors. [facility] Medical History Pain of right thumb Physical exam Screening for cervical cancer Screen for colon cancer Physical exam Eczema History of trigger finger Essential hypertension EDEN (generalized anxiety disorder) Elevated blood pressure reading in office without diagnosis of hypertension Iron deficiency anemia Hypothyroidism Right shoulder pain Morbid obesity Bipolar 1 disorder Surgical History Trigger finger of right thumb History of tubal ligation History of laparoscopic cholecystectomy Family History Father No problems noted. Mother Diabetes Hypertension Maternal Grandmother Diabetes Hypertension Stroke Maternal Aunt Diabetes Hypertension CVD (cardiovascular disease) Social History Housing: Apartment Alcohol intake: never Patient Tobacco Use Status: Former Tobacco user Tobacco use type: Cigarette e-Cigarette/Vaping Use: Never Used Second Hand Smoke Exposure: No service: No Current occupational status: employed Current occupation: rt hand Current occupational exposures/hazards: No Cognitive needs: No Hearing needs: No Vision needs: Yes Coding Level of Care Code Est Pt Level 4 (76313) Diagnoses Panic attacks F41.0 EDEN (generalized anxiety disorder) F41.1 ADHD (attention deficit hyperactivity disorder), inattentive type F90.0
== END 2024-12-08 12:07 | disposition home or self-care (01) ==
LOC: HO.HOP 11:38
PROVIDERS: PCP Internal Medicine; Visit Provider Clinical Nurse Specialist Psychiatric/Mental Health
DX: F41.0 Panic disorder [episodic paroxysmal anxiety] (principal); F41.1 Generalized anxiety disorder; F90.0 Attention-deficit hyperactivity disorder, predominantly inattentive type
CPT/HCPCS: 99214

== ENCOUNTER 2025-01-19 10:32 | Outpatient (AMB) | payer OTHER, MEDICAID, SELFPAY ==
[2025-01-19 10:37] VITALS: BP 124/74; PULSE 76; TEMP 36.2; O2SAT 96; BMI 41.1
--- NOTE | 2025-01-19 10:37 | A.OFFPC_ITS ---
Vital Signs 01/19/25 10:37 Height 5 ft 5 in Weight 247 lb BMI 41.1 BP 124/74 Blood Pressure Location Lt brachial Position Sitting Pulse 76 Pulse Source Pulse Oximeter Temp 97.1 F Temp Source Temporal Artery Scan Pulse Oximetry (%) 96 Oxygen Delivery Method Room Air Intake Visit Reasons: bp Web Application Tester Required: No Accompanied by: Self / Same As Patient Allergies amoxicillin Allergy (Intermediate, Verified 01/19/25 10:58) hives Medication List - Last Reconciled 01/19/25 by Nancy Rondon MD amlodipine 10 mg PO DAILY 90 days brimonidine 0.2% 1 drp ophthalmic (eye) Q8H bupropion HCl XL (Wellbutrin XL) 150 mg PO QAM cholecalciferol (vitamin D3) 25 mcg PO DAILY 90 days diazepam (Valium) 2 mg PO BEDTIME PRN escitalopram oxalate 10 mg PO DAILY hydrocortisone 1% (Anti-Itch (hydrocortisone)) 1 appl topical TID PRN 30 days levothyroxine 50 mcg PO DAILY 90 days losartan 25 mg PO DAILY 90 days sodium,potassium,mag sulfates 17.5-3.13-1.6 gram (Suprep Bowel Prep Kit) 480 mL orally; FOR COLONOSCOPY PREP Tobacco use date assessed: 01/19/25 Dental Screening Dental Screen Date: 01/19/25 Did you have a dental visit in the last 12 months?: No Did you have a dental problem in the last 6 months where you did not have access to dental care?: No Was dental information given to patient?: No HPI HPI Comments History of Present Illness Details The patient is a 54-year-old female presenting for review of laboratory results, medication management and a referral request. Her medical history is significant for an amoxicillin allergy, which causes hives. She has hypertension well controlled with medications. Has hypothyroidism and last TSH was normal. The patient's BMI is 41.1, consistent with morbid obesity, and she requests a referral to a weight loss clinic, noting she will be persistent in securing an appointment this time. Regarding her mental health, the patient reports that her depression and panic attacks are well-managed since starting escitalopram a few months ago. She notes a significant improvement in general anxiety and a reduced need for Valium. Recent lab work from November showed a previously elevated blood sugar level that has now normalized to 88 mg/dL, and her thyroid function was also normal. Her liver enzymes, while previously more elevated, are now mildly elevated at 85 and 65. Her last hemoglobin was 13.9, and she recently discontinued iron supplements due to gastrointestinal intolerance, specifically diarrhea. She attempts to maintain iron levels through diet, including spinach and beans. For health maintenance, the patient had a pre-visit for a colonoscopy but missed the scheduling call for the procedure and intends to follow up. She is up-to-date with her influenza and COVID-19 vaccinations. [facility] Medical History (Updated 01/19/25 @ 11:07 by Nancy Rondon MD) Pain of right thumb Physical exam Screening for cervical cancer Screen for colon cancer Physical exam Eczema History of trigger finger Essential hypertension EDEN (generalized anxiety disorder) Elevated blood pressure reading in office without diagnosis of hypertension Iron deficiency anemia Hypothyroidism Right shoulder pain Morbid obesity Bipolar 1 disorder Surgical History Trigger finger of right thumb History of tubal ligation History of laparoscopic cholecystectomy Family History Father No problems noted. Mother Diabetes Hypertension Maternal Grandmother Diabetes Hypertension Stroke Maternal Aunt Diabetes Hypertension CVD (cardiovascular disease) Social History Housing: Apartment Alcohol intake: never Patient Tobacco Use Status: Former Tobacco user Tobacco use type: Cigarette e-Cigarette/Vaping Use: Never Used Second Hand Smoke Exposure: No service: No Current occupational status: employed Current occupation: rt hand Current occupational exposures/hazards: No Cognitive needs: No Hearing needs: No Vision needs: Yes Questionnaire PHQ-9 Over the last 2 weeks, how often have you been bothered by any of the following problems? 1. Little interest or pleasure in doing things: several days 2. Feeling down, depressed, or hopeless: several days 3. Trouble falling or staying asleep, or sleeping too much: several days 4. Feeling tired or having little energy: several days 5. Poor appetite or overeating: several days 6. Feeling bad about yourself - or that you are a failure or have let yourself or your family down: several days 7. Trouble concentrating on things, such as reading the newspaper or watching television: more than half the days 8. Moving or speaking so slowly that other people could have noticed. Or the opposite - being so fidgety or restless that you have been moving around a lot more than usual: not at all 9. Thoughts that you would be better off or of hurting yourself in some way: several days Total score: 9 Depression Screening Interpretation: Positive Depression Screening Follow-up: Existing condition, In treatment, Community Mental Health Worker F/U and Follow- up Visit Requested Depression Screening Done: Yes 50122 - PHQ-9 Billing: Yes Source: Developed by Drs. Colt Woo, Nina Acuña, Rico Jarquin and colleagues, with an educational codi from [employer]. Thrive Questionnaire Date Thrive assessed: 07/16/24 I am a: Patient What is your living situation today?: I have a steady place to live Within the past 12 months, did the food you bought not last and you didn't have the money to get more?: Never true Within the past 12 months, did you worry whether your food would run out before you got money to buy more?: Never true Do you have trouble paying for medicines?: No Do you have trouble getting transportation to medical appointments?: No Do you have trouble paying your heating and electricity bill?: No Do you have trouble taking care of your child, family member or friend?: No Do you have trouble with day-to-day activities such as bathing, preparing meals, shopping, managing finances, etc.?: No Are you currently unemployed and looking for a job?: No Are you interested in more education?: Yes Please select the resources that you would like help with: None Currently or been in a relationship where the following occur: No concerns reported THRIVE Score: 0 AUDIT C Alcohol Use Questionnaire (AUDIT-C) 1. How often do you have a drink containing alcohol?: Never 3. How often do you have six or more drinks on one occasion?: Never Total Score: 0 Score Reviewed/Action Taken: No EDEN-7 AMB Questionnaire EDEN-7 Date EDEN - 7 assessed: 07/16/24 Feeling nervous, anxious, or on edge: 2 = More than half the days Not being able to stop or control worryin = More than half the days Worrying too much about different things: 2 = More than half the days Trouble relaxin = More than half the days Being so restless that it is hard to sit still: 1 = Several days Becoming easily annoyed or irritable: 1 = Several days Feeling afraid as if something awful might happen: 2 = More than half the days Total EDEN-7 score (0-4 normal; 5-9 mild; 10-14 moderate; 15-21 severe): 12 Source: Developed by Drs. Colt Woo, Nina Acuña, Rico Jarquin and colleagues, with an educational codi from [employer]. EDEN-7 Assessment Billing EDEN-7 Assessment Tool: EDEN-7 Assessment 57763 Review of Systems Const All systems reviewed & are unremarkable except as noted in HPI and below Card Denies chest pain at rest, Denies chest pain with activity, Denies edema, Denies irregular heart rhythm, Denies claudication, Denies dyspnea, Denies dyspnea on exertion, Denies orthopnea, Denies paroxysmal nocturnal dyspnea and Denies slow heart rate Resp Denies cough, Denies dyspnea and Denies dyspnea on exertion GI Denies abdominal pain, Denies change in bowel habits, Denies excessive flatus, Denies nausea and Denies vomiting Skin/Breast Denies bleeding lesions, Denies changing lesions and Denies rash Neuro Denies lack of coordination Physical exam (Primary Care) Vital Signs: Last Vital Signs Temp 97.1 F 01/19/25 10:37 Pulse 76 01/19/25 10:37 BP 124/74 01/19/25 10:37 Pulse Ox 96 01/19/25 10:37 Oxygen Delivery Method Room Air 01/19/25 10:37 BMI result Body Mass Index 41.1 BMI Assessment/Plan discussion: High BMI High, discussed plan: lifestyle, weight reduction, dietary and physical activity Tobacco/Smoking Status: Tobacco use Status Tobacco use date assessed 01/19/25 01/19/25 10:41 Patient Tobacco Use Status Former Tobacco user 01/19/25 10:41 Tobacco use type Cigarette 01/19/25 10:41 e-Cigarette/Vaping Use Never Used 01/19/25 10:41 PHQ-9: PHQ-9 Score PHQ-9: Total score 9 01/19/25 11:02 Depression Screening Interpretation: Positive Depression Screening Follow-up: Existing condition, In treatment, Community Mental Health Worker F/U and Follow- up Visit Requested Thrive Assessment: Date of Thrive Assessment Date Thrive assessed 07/16/24 01/19/25 10:41 Currently or been in a relationship where the following occur: No concerns reported Resp Effort & Inspection: normal respiratory effort Auscultation: clear to auscultation bilaterally Cardio Jugular venous distension: no JVD Rate: regular rate Rhythm: regular rhythm Heart sounds: S1 normal heart sound present and S2 normal heart sound present Extrem General: Yes full ROM Coding Level of Care Code Est Pt Level 4 (78513) Complex EM visit Add On G2211 Diagnoses Essential hypertension I10 Morbid obesity E66.01 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 Transaminitis R74.01 EDEN (generalized anxiety disorder) F41.1 Additional Codes EDEN-7 Assessment Billing - EDEN-7 Assessment Tool: EDEN-7 Assessment 07430 ([id number]) PHQ-9 - 71201 - PHQ-9 Billing: Yes ([id number]) Time Spent (min) 23 Assessment & Plan Assessment & Plan (1) Essential hypertension: Code(s): I10 - Essential (primary) hypertension Category: Medical (2) Morbid obesity: Code(s): E66.01 - Morbid (severe) obesity due to excess calories Category: Medical (3) Hypothyroidism: Code(s): E03.9 - Hypothyroidism, unspecified Category: Medical Qualifiers: Hypothyroidism type: due to Lola's thyroiditis Qualified Code(s): E06.3 - Autoimmune thyroiditis (4) Transaminitis: Code(s): R74.01 - Elevation of levels of liver transaminase levels Category: Medical (5) EDEN (generalized anxiety disorder): Code(s): F41.1 - Generalized anxiety disorder Category: Medical Plan Plan 1. Abnormal levels of other serum enzymes R74.8 The patient's liver enzymes remain mildly elevated, though they have improved. The differential includes fatty liver disease and medication-induced effects. Plan includes an order for a liver ultrasound and a referral to Gastroenterology for further evaluation. 2. Morbid (severe) obesity due to excess calories E66.01 HCC 22 The patient has a BMI of 41.1 and would benefit from a structured weight management program. A referral to the weight loss clinic will be placed, and the patient has been encouraged to be persistent in calling to schedule an appointment. 3. Anxiety disorder, unspecified F41.9 The patient's anxiety and panic attacks are well-controlled with escitalopram, with a significantly reduced need for Valium. The plan is to continue the current medication regimen. 4. Essential (primary) hypertension I10 Continue antihypertensives. BP goal is equal or less than 130/80. 5. Hypothyroidism, unspecified E03.9 Continue levothyroxine. Monitor TSH. Orders: Orders US abdomen rushing w elastography Today R74.01 - Elevation of levels of liver transaminase levels Lipid Panel 6 Months E78.5 - Hyperlipidemia, unspecified Complete Blood Count Auto Diff 6 Months D64.9 - Anemia, unspecified Vitamin D 25-OH Total 6 Months E55.9 - Vitamin D deficiency, unspecified Comprehensive [place]. Panel Fast 6 Months I10 - Essential (primary) hypertension Thyroid Stimulating Hormone 6 Months E06.3 - Autoimmune thyroiditis IRON PROFILE 6 Months D64.9 - Anemia, unspecified Vitamin B12 and Folate 6 Months E53.8 - Deficiency of other specified B group vitamins Referrals Gastroenterology Referral R74.01 - Elevation of levels of liver transaminase levels Medical Weight Management Referral E66.01 - Morbid (severe) obesity due to excess calories
== END 2025-01-19 11:10 | disposition home or self-care (01) ==
LOC: HO.HMCH 10:33
PROVIDERS: PCP Internal Medicine; Visit Provider Internal Medicine
DX: I10 Essential (primary) hypertension (principal); E66.01 Morbid (severe) obesity due to excess calories; Z68.41 Body mass index [BMI] 40.0-44.9, adult; E06.3 Autoimmune thyroiditis; R74.01 Elevation of levels of liver transaminase levels; F41.1 Generalized anxiety disorder

== ENCOUNTER → 2025-01-19 10:32 | Outpatient (BNVA) | payer OTHER, MEDICAID, SELFPAY | PROVIDERS: PCP Internal Medicine; Visit Provider Internal Medicine | DX: I10 Essential (primary) hypertension (principal); E66.01 Morbid (severe) obesity due to excess calories; E06.3 Autoimmune thyroiditis; R74.01 Elevation of levels of liver transaminase levels; F41.1 Generalized anxiety disorder; Z68.41 Body mass index [BMI] 40.0-44.9, adult | CPT/HCPCS: 96127 ==

== ENCOUNTER 2025-02-03 10:00 | Outpatient (AMB) | payer OTHER, SELFPAY ==
--- NOTE | 2025-02-03 10:04 | A.OFFPSYCH_ITS ---
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 Allergies amoxicillin Allergy (Intermediate, Verified 01/19/25 10:58) hives Medication List - Last Reconciled 02/03/25 by Ana Perez APRN amlodipine 10 mg PO DAILY 90 days brimonidine 0.2% 1 drp ophthalmic (eye) Q8H bupropion HCl XL (Wellbutrin XL) 150 mg PO QAM cholecalciferol (vitamin D3) 25 mcg PO DAILY 90 days diazepam (Valium) 2 mg PO BEDTIME PRN escitalopram oxalate 10 mg PO DAILY hydrocortisone 1% (Anti-Itch (hydrocortisone)) 1 appl topical TID PRN 30 days levothyroxine 50 mcg PO DAILY 90 days losartan 25 mg PO DAILY 90 days sodium,potassium,mag sulfates 17.5-3.13-1.6 gram (Suprep Bowel Prep Kit) 480 mL orally; FOR COLONOSCOPY PREP HPI- Psychiatric Chief Complaint: follow up HPI Narrative: Pt here for follow up anxiety, depression and ADHD. pt reports improvement; mood and anxiety is much improved; fewer panic attacks tolerating the lexapro and feels its helping her anxiety and worry taking valium 1-2 times a week with good effect Pt reports wellbutrin seems to be helping her ADHD symptoms but not as much as when she first started it Pt denies side effects from wellbutrin or lexapro. No sedation or dizziness appetite and sleep intact she is still often distracted by her own thoughts; she is forgetful; she uses many strategies such as list making and alarms on her phone but she will often forget things if she doesn't respond to the alarm right away she is starting school program in March. PHQ9=6 and GAD7=5 ADHD self report scale shows some improvement she denies SI or HI Past Psychiatric History: one IPLOC age 17 outpt tx at [facility] and then with PCP; dx with bipolar when age 17- never had manic episode prozac worked for depression but not for anxiety; paxil= irritable, zoloft= angry, buspar=no effect, xanax in past, seroquel= gained excessive weight, leg pain. Subjective Subjective Medication Compliance: Yes Side effects from medications: No Review of Systems Medical Review of Systems: unchanged Mental Status Exam Mental Status Exam Patient Appearance: Well Grooomed Patient Orientation: Person, Place, Time and Situation Level of Consciousness: Awake, Appropriate and Alert Patient Behavior: Appropriate and Cooperative Mood Description: Appropriate and Cheerful Affect Description: Appropriate and Cheerful Patient Cognition Impaired: No Ability to Follow Directions: Fair Speech Pattern: Clear and Appropriate Memory Description: Intact Hallucinations: None Delusions: Not Present Thought Process: Intact and Goal Oriented Thought Content: positive for Intact and positive for Goal Oriented Judgement: Good Assessment and Plan Assessment & Plan (1) Panic attacks: Status: Acute Code(s): F41.0 - Panic disorder [episodic paroxysmal anxiety] (2) EDEN (generalized anxiety disorder): Status: Acute Code(s): F41.1 - Generalized anxiety disorder (3) ADHD (attention deficit hyperactivity disorder), inattentive type: Status: Acute Code(s): F90.0 - Attention-deficit hyperactivity disorder, predominantly inattentive type Plan Continue Increase wellbutrin XL 300 mg qam lexapro 10mg daily valium 2mg prn return in 1 month Medications: New bupropion HCl XL (Wellbutrin XL) 300 mg PO QAM 90 tabs 0RF Refilled escitalopram oxalate 10 mg PO DAILY 90 tabs 0RF diazepam (Valium) 2 mg PO BEDTIME PRN 30 tabs 2RF sleep Discontinued bupropion HCl XL (Wellbutrin XL) Discontinued Reason: Doctor's Order 150 mg PO QAM 30 tabs 2RF Counseling and coordination of Care Pt. Self Management counseling: Maintenance-social rhythm, Mod caffeine/ETOH intake, Nutrition education and improvement, Sleep hygiene and General coping skills Medication management counseling: Effectiveness, Side effects, Dosing range, Duration, Drug interaction and Adherence Diagnosis and Prognosis Counseling: Accuracy of diagnosis, Prognosis over time, Impact of diagnosis on life functions and Adequacy of current interventions Details: I spent 35 minutes reviewing the record, seeing the patient and documenting in the medical record. Counseling provided to the patient/caregiver as outlined below. Addressed patient/caregiver concerns regarding current medication regime including effective adherence. Addressed patient/caregiver concerns regarding diagnosis and prognosis including accuracy of diagnosis, prognosis over time, impact of diagnosis. Addressed patient/caregiver concerns regarding impact of recent stressors. [facility] Medical History Pain of right thumb Physical exam Screening for cervical cancer Screen for colon cancer Physical exam Eczema History of trigger finger Essential hypertension EDEN (generalized anxiety disorder) Elevated blood pressure reading in office without diagnosis of hypertension Iron deficiency anemia Hypothyroidism Right shoulder pain Morbid obesity Bipolar 1 disorder Surgical History Trigger finger of right thumb History of tubal ligation History of laparoscopic cholecystectomy Family History Father No problems noted. Mother Diabetes Hypertension Maternal Grandmother Diabetes Hypertension Stroke Maternal Aunt Diabetes Hypertension CVD (cardiovascular disease) Social History Housing: Apartment Alcohol intake: never Patient Tobacco Use Status: Former Tobacco user Tobacco use type: Cigarette e-Cigarette/Vaping Use: Never Used Second Hand Smoke Exposure: No service: No Current occupational status: employed Current occupation: rt hand Current occupational exposures/hazards: No Cognitive needs: No Hearing needs: No Vision needs: Yes Substance History: none Coding Level of Care Code Est Pt Level 4 (27239) Diagnoses Panic attacks F41.0 EDEN (generalized anxiety disorder) F41.1 ADHD (attention deficit hyperactivity disorder), inattentive type F90.0
== END 2025-02-03 10:27 | disposition home or self-care (01) ==
LOC: HO.HOP 10:00
PROVIDERS: PCP Internal Medicine; Visit Provider Clinical Nurse Specialist Psychiatric/Mental Health
DX: F41.0 Panic disorder [episodic paroxysmal anxiety] (principal); F41.1 Generalized anxiety disorder; F90.0 Attention-deficit hyperactivity disorder, predominantly inattentive type
CPT/HCPCS: 99214

== ENCOUNTER 2025-03-10 09:45 | Outpatient (AMB) | payer OTHER, SELFPAY ==
--- NOTE | 2025-03-10 09:06 | A.OFFPSYCH_ITS ---
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 Allergies amoxicillin Allergy (Intermediate, Verified 01/19/25 10:58) hives Medication List - Last Reconciled 03/10/25 by Ana Perez APRN amlodipine 10 mg PO DAILY 90 days brimonidine 0.2% 1 drp ophthalmic (eye) Q8H bupropion HCl XL (Wellbutrin XL) 300 mg PO QAM cholecalciferol (vitamin D3) 25 mcg PO DAILY 90 days diazepam (Valium) 2 mg PO BEDTIME PRN escitalopram oxalate 10 mg PO DAILY hydrocortisone 1% (Anti-Itch (hydrocortisone)) 1 appl topical TID PRN 30 days levothyroxine 50 mcg PO DAILY 90 days losartan 25 mg PO DAILY 90 days sodium,potassium,mag sulfates 17.5-3.13-1.6 gram (Suprep Bowel Prep Kit) 480 mL orally; FOR COLONOSCOPY PREP HPI- Psychiatric Chief Complaint: f/u consultation HPI Narrative: Pt seen via telehealth for follow up re: anxiety, depression and ADHD. pt reports improvement; mood and anxiety is much improved; Pt reports no panic attacks in months tolerating the lexapro and feels its helping her anxiety and worry taking valium 1-2 times a week with good effect Pt reports wellbutrin is helping her ADHD symptoms She is more focused and able to concentrate she is starting school in [place] and has been studying pt expresses more confidence and is setting goals Pt denies side effects from wellbutrin, lexapro, or valium. No sedation or dizziness appetite and sleep intact she uses many strategies such as list making and alarms on her phone but she will often forget things if she doesn't respond to the alarm right away she denies SI or HI she is expressing interest in therapy to process her relationship with and father of her children Past Psychiatric History: one IPLOC age 17 outpt tx at [facility] and then with PCP; dx with bipolar when age 17- never had manic episode prozac worked for depression but not for anxiety; paxil= irritable, zoloft= angry, buspar=no effect, xanax in past, seroquel= gained excessive weight, leg pain. Subjective Subjective Medication Compliance: Yes Side effects from medications: No Review of Systems Medical Review of Systems: unchanged Mental Status Exam Mental Status Exam Patient Appearance: Appropriate Patient Orientation: Person, Place, Time and Situation Level of Consciousness: Awake, Appropriate and Alert Patient Behavior: Appropriate and Cooperative Mood Description: Appropriate and Cheerful Affect Description: Appropriate and Cheerful Patient Cognition Impaired: No Ability to Follow Directions: Good Speech Pattern: Clear, Appropriate and Soft-Spoken Memory Description: Intact Hallucinations: None Delusions: Not Present Thought Process: Intact and Goal Oriented Thought Content: positive for Intact and positive for Goal Oriented Judgement: Good Telehealth Telehealth Telehealth Platform: [employer] Location of provider rendering services: practice address Location of patient: address on file Patient Identification confirmed using: Name, : Yes Telehealth method: video Patient verbally consented to treatment: Yes Patient verbally consented to billing insurance company: Yes Patient informed of any privacy concerns related to visit: Yes Minutes spent on Phone/Video with Pt.: 25 Assessment and Plan Assessment & Plan (1) Panic attacks: Status: Acute Code(s): F41.0 - Panic disorder [episodic paroxysmal anxiety] (2) EDEN (generalized anxiety disorder): Status: Acute Code(s): F41.1 - Generalized anxiety disorder (3) ADHD (attention deficit hyperactivity disorder), inattentive type: Status: Acute Code(s): F90.0 - Attention-deficit hyperactivity disorder, predominantly inattentive type Plan Continue wellbutrin XL 300 mg qam lexapro 10mg daily valium 2mg prn pt would likehelp finding telehealth therapist pt ready to follow up with PCP for meds now that stable and doing well. Medications: Refilled diazepam (Valium) 2 mg PO BEDTIME PRN 30 tabs 4RF sleep escitalopram oxalate 10 mg PO DAILY 90 tabs 1RF bupropion HCl XL (Wellbutrin XL) 300 mg PO QAM 90 tabs 1RF Counseling and coordination of Care Pt. Self Management counseling: Maintenance-social rhythm, Nutrition education and improvement, Sleep hygiene, General coping skills and Problem solving Medication management counseling: Effectiveness, Side effects, Dosing range, Duration, Drug interaction and Adherence Diagnosis and Prognosis Counseling: Accuracy of diagnosis, Prognosis over time, Impact of diagnosis on life functions and Adequacy of current interventions Details: I spent 30 minutes reviewing the record, seeing the patient and documenting in the medical record. Counseling provided to the patient/caregiver as outlined below. Addressed patient/caregiver concerns regarding current medication regime including effective adherence. Addressed patient/caregiver concerns regarding diagnosis a nd prognosis including accuracy of diagnosis, prognosis over time, impact of diagnosis. Addressed patient/caregiver concerns regarding impact of recent stressors. [facility] Medical History (Updated 03/10/25 @ 09:25 by Ana Perez APRN) Pain of right thumb Physical exam Screening for cervical cancer Screen for colon cancer Physical exam Eczema History of trigger finger Essential hypertension EDEN (generalized anxiety disorder) Elevated blood pressure reading in office without diagnosis of hypertension Iron deficiency anemia Hypothyroidism Right shoulder pain Morbid obesity Surgical History Trigger finger of right thumb History of tubal ligation History of laparoscopic cholecystectomy Family History Father No problems noted. Mother Diabetes Hypertension Maternal Grandmother Diabetes Hypertension Stroke Maternal Aunt Diabetes Hypertension CVD (cardiovascular disease) Social History Housing: Apartment Alcohol intake: never Patient Tobacco Use Status: Former Tobacco user Tobacco use type: Cigarette e-Cigarette/Vaping Use: Never Used Second Hand Smoke Exposure: No service: No Current occupational status: employed Current occupation: rt hand Current occupational exposures/hazards: No Cognitive needs: No Hearing needs: No Vision needs: Yes Social History: lives in apartment; close with 73 yo mother in law; ; has adult children; works in healthcare Substance History: none Trauma History: 's addiction and 2 yrs ago Coding Level of Care Code Tele Est Pt Level 4 (70311) Diagnoses Panic attacks F41.0 EDEN (generalized anxiety disorder) F41.1 ADHD (attention deficit hyperactivity disorder), inattentive type F90.0
== END 2025-03-10 09:47 | disposition home or self-care (01) ==
LOC: HO.HOP 09:45
PROVIDERS: PCP Internal Medicine; Visit Provider Clinical Nurse Specialist Psychiatric/Mental Health
DX: F41.0 Panic disorder [episodic paroxysmal anxiety] (principal); F41.1 Generalized anxiety disorder; F90.0 Attention-deficit hyperactivity disorder, predominantly inattentive type
CPT/HCPCS: 99214